=== PATIENT | male | born 1955 | race Caucasian/White ===

== ENCOUNTER 2020-08-26 08:18 | Inpatient (IN) | payer BC, OTHER ==
[~2020-08-26] VITALS: Ht 167.6 cm; Wt 93.5 kg
[~2020-08-26 08:18] MED LIST: ALLO100T PO; ARIP1TAB4 PO; ATIV1TAB10 PO; ATIV1TAB7 PO; BUSP10TA PO; DIAZ5TAB PO; DULC100C PO; OMEP1CAP73 PO; PROZ10CA7 PO; PROZ40CA PO; RAMI1CAP24 PO; SERT-141 PO; SODI650T PO; TRAZ-252 PO; TRAZ1TAB6 PO; VIAG100T PO; XANA0.25 PO; ZYLO300T6 PO
[2020-08-26] MEDS ORDERED: POTA1TAB23 PO (08:34)
[2020-08-26] MEDS ORDERED: ARIP1TAB6 PO (08:34)
[2020-08-26] MEDS ORDERED: SERT-138 PO (08:34)
[2020-08-26] MEDS ORDERED: FURO40TA2 PO (08:34)
[2020-08-26 09:17] LABS: HEMATOCRIT 46.1 % (42.0-52.0); HEMOGLOBIN 15.6 g/dl (13.5-17.5); MEAN CORPUSCULAR HEMOGLOBIN 33.2 pg (27.0-33.0); MEAN CORPUSCULAR HGB CONC 33.8 g/dl (32.0-36.5); MEAN CORPUSCULAR VOLUME 98.1 fl (80.0-96.0); PLATELET COUNT, AUTOMATED 211 10^3/uL (150-450); WHITE BLOOD COUNT 7.3 10^3/uL (4.0-10.0)
[2020-08-26 10:10] LABS: ACETAMINOPHEN LEVEL < 2.0 UG/ML (10.0-30.0); ALBUMIN 4.1 GM/DL (3.2-5.2); ALT/SGPT 39 U/L (12-78); BILIRUBIN,DIRECT 0.1 MG/DL (0.0-0.2); BILIRUBIN,TOTAL 0.5 MG/DL (0.2-1.0); BLOOD UREA NITROGEN 29 MG/DL (7-18); CALCIUM LEVEL 9.5 MG/DL (8.8-10.2); CARBON DIOXIDE LEVEL 32 MEQ/L (21-32); CHLORIDE LEVEL 102 MEQ/L (98-107); ETHYL ALCOHOL (ETHANOL) < 0.003 % (0.000-0.010); GLOMERULAR FILTRATION RATE 43.4 (>49); GLUCOSE, FASTING 127 MG/DL (70-100); POTASSIUM SERUM 3.4 MEQ/L (3.5-5.1); SALICYLATE LEVEL < 1.7 MG/DL (5.0-30.0); SODIUM LEVEL 140 MEQ/L (136-145); TOTAL PROTEIN 8.4 GM/DL (6.4-8.2)
[2020-08-26 12:05] LABS: AMPHETAMINES LEVEL URINE NEGATIVE (NEGATIVE); BARBITURATES URINE NEGATIVE (NEGATIVE); BENZODIAZEPINES URINE POSITIVE (NEGATIVE); CANNABINOIDS URINE POSITIVE (NEGATIVE); COCAINE METABOLITE URINE NEGATIVE (NEGATIVE); METHADONE URINE NEGATIVE (NEGATIVE); OPIATES URINE NEGATIVE (NEGATIVE); PHENCYCLIDINE URINE NEGATIVE (NEGATIVE)
--- NOTE | 2020-08-26 13:14 | REPVR ---
PROCEDURE INFORMATION: Exam: CT Head Without Contrast Exam date and time: 08/26/2020 1:01 PM Age: 65 years old Clinical indication: Altered mental status/memory loss; Confusion or disorientation TECHNIQUE: Imaging protocol: Computed tomography of the head without contrast. Radiation optimization: All CT scans at this facility use at least one of these dose optimization techniques: automated exposure control; mA and/or kV adjustment per patient size (includes targeted exams where dose is matched to clinical indication); or iterative reconstruction. COMPARISON: No relevant prior studies available. FINDINGS: Brain: There is no acute intracranial hemorrhage or mass effect. Mild diffuse volume loss is within the range of normal for patient age. There are small vessel ischemic changes within the periventricular and subcortical white matter, but the normal burgos/white matter delineation is maintained. Cerebral ventricles: No ventriculomegaly. Bones/joints: Unremarkable. No acute fracture. Paranasal sinuses: Visualized sinuses are unremarkable. No fluid levels. Mastoid air cells: Visualized mastoid air cells are well aerated. Soft tissues: Unremarkable. IMPRESSION: No acute hemorrhage or edema. Electronically signed by: Destiny Banegas On 08/26/2020 13:13:32 PM
[2020-08-26] MEDS ORDERED: SERTRALINE 100 MG TAB PO ONE (15:00)
[2020-08-26] MEDS ORDERED: POTASSIUM CHLORIDE 10 MEQ SR TABLET PO ONE (15:00)
[2020-08-26] MEDS ORDERED: diazePAM 5MG TABLET PO ONE (15:00)
[2020-08-26] MEDS ORDERED: TRAZ-186 PO (15:16)
[2020-08-26] MEDS ORDERED: DOCU100C16 PO (15:16)
[2020-08-26] MEDS ORDERED: DIAZ5TAB PO (15:16)
[2020-08-26] MEDS ORDERED: ZYLO300T6 PO (15:16)
[2020-08-26] MEDS ORDERED: ASPI81TA86 PO (15:16)
[2020-08-26] MEDS ORDERED: OLANZapine ORAL DISINTEGRATING TAB 5MG PO PRN (17:15)
[2020-08-26] MEDS ORDERED: MAALOX 30 ML SUSP *UDC PO PRN (17:15)
[2020-08-26] MEDS ORDERED: ACETAMINOPHEN TAB 650MG DOSE (2X325MG) PO PRN (17:15)
[2020-08-26 19:06] VITALS: BP 132/83
[2020-08-26] MEDS: diazePAM 5MG TABLET PO SCH (21:14)
[2020-08-26] MEDS: POTASSIUM CHLORIDE 10 MEQ SR TABLET PO SCH (21:14)
[2020-08-27 06:20] VITALS: BP 139/91
[2020-08-27] MEDS: allopurinoL 300 MG TAB PO SCH (09:00)
[2020-08-27] MEDS: diazePAM 5MG TABLET PO SCH ×2 (09:00→20:16)
[2020-08-27] MEDS: FUROSEMIDE 40 MG TAB PO SCH (09:01)
[2020-08-27] MEDS: ASPIRIN 81 MG ENTERIC TAB PO SCH (09:02)
[2020-08-27] MEDS: POTASSIUM CHLORIDE 10 MEQ SR TABLET PO SCH ×2 (09:02→20:17)
[2020-08-27] MEDS: SERTRALINE 100 MG TAB PO SCH (09:02)
--- NOTE | 2020-08-27 10:51 | MHHPEPDOC ---
General Date Of Admission: Aug 26, 2020 Legal Status: 9.39 Chief Complaint "I am here because I had a foolish idea in my head, I didn't want to live the way I felt, I didn't want to live." History of Present Illness HISTORY OF THE PRESENT ILLNESS: Patient is a 65 -year-old , Retired, Domiciled, , male, who was brought in by his family for suicidal ideation. Family was noticing his depression. He denies anxiety. Depression had started one month ago. "I had bouts of minor depression but it went away. This time around it came and didn't go away he states." Patient has bilateral essential tremors in both hands and arms. Presents with depressed mood but denies anxiety, reporting poor sleep, poor appetite, having feelings of wanting to be but no having self-harm thoughts. He state that he has an neurological appointment on 08/29/20 for his essential tremors. Psychiatric Review of Systems Depression (2 or more weeks): depressed mood, anhedonia, insomnia/hypersomnia (having poor sleep, complains of peer who is yelling at night states he can't sleep while in the hospital. ), feelings of excess/guilt, decreased energy, difficulty concentrating, appetite changes, psychomotor changes (has tremors), suicidal thoughts Dunia (4 or more days of): denies Psychosis: denies PTSD: denies Anxiety: denies Past Psychiatric History Previous Psychiatric Diagnosis: Depression Previous Psychiatric Admissions: two admissions in 2016 Suicide Attempts: no past gestures or attempts, has had ideations in the past "I don't believe in that, the bible says you will never make it to heaven" Psychiatric Follow-up: [facility] Psychiatric medications: Past Medical History Medical Problems Tremors (states tremors started 6 weeks ago, feels he has Parkinson's) Years ago had infection in his blood and was hospitalized Kidney Disease Surgical: None Allergies: PCN Head Injury: No Seizures: No Hospitalizations: Yes Surgeries: No Family Medical/Psychiatric HX Medical Problems "My Mother has problems with her nerves" 2016 Father , at age 49 and feels that this may have caused mother's depression 1 of 4 children, he is the youngest. All of his siblings are alive. Close relationship with his siblings. Hypertension CKD3 Atrophic left kidney Hyperuricemia History of kidney stone Anxiety/depression Insomnia Chronic back pain/hip pain History of left groin pain evaluated by urology and this was felt to be tendinitis. Subsequently he received chiropractor treatments and this improved. When he gets muscle tightness associated with stress he has noticed pain in the right groin as well. Poor dentition Psychiatric Disorders: Yes Addiction: No Suicide Attemps/Completions: No Addiction History denies Social History Childhood: Born in [place] to both parents, 1 of 4 children, he is the youngest. 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 could not have children. Mental Status Examination General Appearance: well groomed Build: overweight Demeanor: average Eye Contact: average Activity: slowed Behavior: cooperative Speech: clear Mood: depressed Mood "I am feeling a little better" Affect: flat Thought Process: logical/linear Thought Content (Delusions): none reported, denies SI, HI, AVH Thought Content (Other): none reported Thought Content (Aggressive): none reported Perception (Hallucinations): none reported Perception (Other): none reported Cognition (Impairment of): none reported Cognition(Intelligence Est.): average Oriented: Awake, Alert, Oriented times three Insight: good Judgment: Good Psychosis: Denies Diagnoses Major Depressive Disorder, Recurrent, Mild A-FIB/CHADSVASC A-FIB History Current/History of A-Fib/PAF?: No Current PO Anticoag Therapy: No Age/Risk Factor Scoring CHADSVASC: CHADSVASC Response (Comments) Value Age Risk Factor Age < 65 years old 0 Gender Risk Factor Male 0 Hx of CHF No 0 Hx of HTN No 0 Hx of Stroke/TIA/or VTE No 0 Hx of Diabetes No 0 Hx of Vascular Disease No 0 Total 0 Treatment Treatment ordered: NONE Assessment Patient is reporting depression with suicidal ideation but no planning or intent. He stated that he has moments when he does want to live, but that he does not have a plan or have intent. He cites that his hinduism stops him, stating "The bible says that if you kill yourself, you will never get to heaven." Patient reports that mild tremors started approximately 1 year ago and were mild and note noticeable. About 6-8 months ago his sisters noted his tremors. Likely his tremors are the related to his increase in depression. It may be necessary for him to keep the appointment. with neurologist Patient is reporting a reduction in depression in my interview with him but complains that he is not able to sleep due to yelling of another peer on the unit. At this time, he is agreeable to staying the weekend and being observed. He will continue all of his home medications. Patient is on Zoloft 200 mg and Abilify 5 mg, I see no need to make any changes at this time. Initial Treatment Plan 1. Patient was admitted on a [9.39] status. 2. Complete history was obtained. 3. With patients permission, family will be contacted and database will be expanded. 4. Patients medication regimen will be reviewed and changed accordingly. 5. Patient will be provided with protected environment. 6. Patient will be treated with individual, group, and milieu therapies. 7. Patient will receive supportive psych-education. 8. Discharge planning will commence immediately. 9. Outpatient follow-up treatment will be strongly recommended. 10. The initial treatment plan will focus initially on: * Depression. * Risk for suicide. ESTIMATED LENGTH OF STAY: 3-5 DAYS. TIME SPENT COUNSELING AND COORDINATING INITIAL CARE: 45 minutes. Vital Signs Vital Signs Date Time Temp Pulse Resp B/P (MAP) Pulse Ox O2 Delivery O2 Flow Rate FiO2 08/27/20 06:20 97.5 104 20 139/91 (107) Room Air 08/26/20 18:11 96 Laboratory Data 24H Labs Laboratory Tests 2 08/26/20 11:20: Urine Opiates Screen NEGATIVE, Urine Methadone Screen NEGATIVE, Urine Barbiturates Screen NEGATIVE, Urine Phencyclidine Screen NEGATIVE, Urine Amphetamines Screen NEGATIVE, Urine Benzodiazepines Screen POSITIVEH, Urine Cocaine Metabolite Screen NEGATIVE, Urine Cannabinoids Screen POSITIVEH Medications Scheduled Allopurinol (Zyloprim) 300 Mg Tablet, 300 MG PO DAILY, (Reported) Aripiprazole (Aripiprazole) 5 Mg Tablet, 5 MG PO DAILY, (Reported) Aspirin (Aspir 81) 81 Mg Tablet.dr, 81 MG PO DAILY, (Reported) Diazepam (Diazepam) 5 Mg Tablet, 5 MG PO BID, (Reported) Furosemide (Furosemide) 40 Mg Tablet, 40 MG PO DAILY, (Reported) Potassium Chloride (Potassium Chloride) 10 Meq Tablet.er, 10 MEQ PO BID, (Reported) Sertraline HCl (Sertraline HCl) 100 Mg Tablet, 200 MG PO DAILY, (Reported) Sodium Bicarbonate (Sodium Bicarbonate) 650 Mg Tab, 650 MG PO BID, (Reported) Trazodone HCl (Trazodone HCl) 50 Mg Tablet, 50 MG PO QHS, (Reported) Scheduled PRN Docusate Sodium (Docusate Sodium) 100 Mg Capsule, 100 MG PO DAILY PRN for CONSTIPATION, (Reported) Allergies Coded Allergies: Penicillins (Verified Allergy, Intermediate, RASH, 08/26/20) DILMA GRIFFITH NP Aug 27, 2020 10:51
--- NOTE | 2020-08-27 13:53 | HPEPDOC ---
General Date of Admission Aug 26, 2020 at 17:15 Date of Service: Aug 27, 2020 Chief Complaint The patient is a 65-year-old male admitted with a reason for visit of Unspecified Depressive Disorder. Source: Patient History of Present Illness 65 year old male with PMH of CKD stage 3, hypertension, hyperuricemia, kidney stone , depression was admitted in [facility] for unspecified depression. Patient is being medically examined today. Patient does not offer any complaints today Excepts that he has noticed tremors in his hands and sometimes in his feet for the past several months. He reports that he has an appointment with Dr George next week. He says that he has not been eating or drinking well since he has been here. He denies any problem walking but nurses have noticed that he is very stiff and has difficulty getting in and out of bed. I noted him to be walking with a slow stiff gait. Home Medications Scheduled Allopurinol (Zyloprim) 300 Mg Tablet, 300 MG PO DAILY, (Reported) Aripiprazole (Aripiprazole) 5 Mg Tablet, 5 MG PO DAILY, (Reported) Aspirin (Aspir 81) 81 Mg Tablet.dr, 81 MG PO DAILY, (Reported) Diazepam (Diazepam) 5 Mg Tablet, 5 MG PO BID, (Reported) Furosemide (Furosemide) 40 Mg Tablet, 40 MG PO DAILY, (Reported) Potassium Chloride (Potassium Chloride) 10 Meq Tablet.er, 10 MEQ PO BID, (Reported) Sertraline HCl (Sertraline HCl) 100 Mg Tablet, 200 MG PO DAILY, (Reported) Sodium Bicarbonate (Sodium Bicarbonate) 650 Mg Tab, 650 MG PO BID, (Reported) Trazodone HCl (Trazodone HCl) 50 Mg Tablet, 50 MG PO QHS, (Reported) Scheduled PRN Docusate Sodium (Docusate Sodium) 100 Mg Capsule, 100 MG PO DAILY PRN for CONSTIPATION, (Reported) Allergies Coded Allergies: Penicillins (Verified Allergy, Intermediate, RASH, 08/26/20) Past Medical History Medical History Hypertension CKD3 Atrophic left kidney Hyperuricemia History of kidney stone Anxiety/depression Insomnia Chronic back pain/hip pain History of left groin pain evaluated by urology and this was felt to be tendinitis. Subsequently he received chiropractor treatments and this improved. When he gets muscle tightness associated with stress he has noticed pain in the right groin as well. Poor dentition ED Surgical History none Family History Mother: age 87 secondary to dementia Father: age 49 secondary to [place] Siblings: One brother has bad gout, 2 sisters Alive, well Children: None Social History * Smoker: Denies Alcohol: Denies Drugs: denies A-FIB/CHADSVASC A-FIB History Current/History of A-Fib/PAF?: No Review of Systems Constitutional: Denies: Chills, Fever, Night Sweats Eyes: Denies: Pain, Vision change ENT: Denies: Head Aches, Ear Pain, Dysphagia Skin: Denies: Rash, Lesions, Breakdown Pulmonary: Denies: Dyspnea, Cough Cardiovascular: Denies: Chest Pain, Palpitations, Orthopnea, Paroxysmal Noc. Dyspnea, Lt Headedness Gastrointestinal: Denies: Nausea, Vomiting, Abdominal Pain, Diarrhea Genitourinary: Denies: Dysuria, Frequency, Incontinence, Retention Musculoskeletal: Denies: Neck Pain, Back Pain, Joint Pain, Muscle Pain, Spasms Physical Examination General Exam: Positive: Alert, Cooperative, No Acute Distress Eye Exam: Positive: PERRLA, Conjunctiva & lids normal, EOMI; Negative: Sclera icteric ENT Exam: Positive: Atraumatic, Mucous membr. moist/pink, Pharynx Normal Neck Exam: Positive: Supple; Negative: JVD, thyromegaly Chest Exam: Positive: Clear to auscultation, Normal air movement Heart Exam: Positive: Rate Normal, Regular Rhythm, Normal S1, Normal S2; Negative: Murmurs, Rubs Abdomen Exam: Positive: Normal bowel sounds, Soft; Negative: Tenderness, Hepatospenomegaly Extremity Exam: Positive: Normal pulses; Negative: Clubbing, Cyanosis, Edema Skin Exam: Positive: Nl turgor and temperature; Negative: Breakdown, Lesion Neuro Exam: Positive: Other (static tremors in both hands, cog wheel rigidily at the wrist and elbows) Psych Exam: Positive: Memory Intact, Oriented x 3 Vital Signs Vital Signs Date Time Temp Pulse Resp B/P (MAP) Pulse Ox O2 Delivery O2 Flow Rate FiO2 08/27/20 06:20 97.5 104 20 139/91 (107) Room Air 08/26/20 18:11 96 Assessment/Plan 65 year old male with PMH of CKD stage 3, hypertension, hyperuricemia, kidney stone , depression was admitted in [facility] for unspecified depression. Patient is being medically examined today. Probable parkinsonism has appointment with Dr George. CKD stage 3 creatinine stable at baseline continue sodi bicarb, lasix, potassium Hypertension continue lasix Hyperuricemia/gout cont allopurinol Depression as per psychiatry Plan / VTE VTE Prophylaxis Ordered?: No (freely ambulatory) KINSEY BECK MD Aug 27, 2020 12:49
[2020-08-27 17:58] VITALS: BP 139/82
[2020-08-28 06:44] VITALS: BP 137/83
[2020-08-28] MEDS ORDERED: FLUBLOK(EGG FREE)(QUAD)INFLUENZA VACC 0.5ML SYRINGE 18YRS & OLDER IM ONE (09:00)
[2020-08-28] MEDS: ASPIRIN 81 MG ENTERIC TAB PO SCH (09:41)
[2020-08-28] MEDS: diazePAM 5MG TABLET PO SCH ×2 (09:42→20:05)
[2020-08-28] MEDS: SERTRALINE 100 MG TAB PO SCH (09:42)
[2020-08-28] MEDS: FUROSEMIDE 40 MG TAB PO SCH (09:42)
[2020-08-28] MEDS: POTASSIUM CHLORIDE 10 MEQ SR TABLET PO SCH ×2 (09:42→20:05)
[2020-08-28] MEDS: allopurinoL 300 MG TAB PO SCH (09:42)
[2020-08-28 18:00] VITALS: BP 148/84
[2020-08-28] MEDS: traZODone 50 MG TAB PO PRN (20:05)
[2020-08-29 06:51] VITALS: BP 144/80
[2020-08-29] MEDS: FUROSEMIDE 40 MG TAB PO SCH (08:44)
[2020-08-29] MEDS: diazePAM 5MG TABLET PO SCH ×2 (08:44→20:13)
[2020-08-29] MEDS: allopurinoL 300 MG TAB PO SCH (08:44)
[2020-08-29] MEDS: SERTRALINE 100 MG TAB PO SCH (08:44)
[2020-08-29] MEDS: ASPIRIN 81 MG ENTERIC TAB PO SCH (08:44)
[2020-08-29] MEDS: POTASSIUM CHLORIDE 10 MEQ SR TABLET PO SCH ×2 (08:45→20:13)
--- NOTE | 2020-08-29 16:24 | MHIPN ---
DATE: 08/28/2020 The patient today states "I've been better." He admits that he is feeling very depressed. He says that his sleep was fair, because he woke up in the middle of the night and did not remember where he was. MENTAL STATUS EXAMINATION: He is alert and oriented times three. Eye contact is poor. Patient is noted to have a significant fine tremor of the upper extremities. There is no formal thought disorder. Mood is depressed. Affect appropriate to mood. He is not psychotic, suicidal, homicidal. Concentration is fair. Memory intact. Insight and judgment are fair. DIAGNOSIS: Major depressive disorder. TREATMENT PLAN: We will continue to monitor the patient for continued elevation and stabilization of his mood and continued resolution of suicidal thoughts, and we will titrate medications as indicated. MAGDY
[2020-08-29 17:59] VITALS: BP 130/74
[2020-08-30 06:36] VITALS: BP 137/86
--- NOTE | 2020-08-30 09:43 | MHIPNPDOC ---
[facility] Progress Note Progress Note DATE OF SERVICE: 08/30/20 Subjective HPI: Patient presents today for a follow-up. Patient has a quite masked face with some tremors, obvious signs of Parkinsons disease. He is somewhat feeling better and his suicidal thoughts have resolved. He did have an episode of confusion this morning. MEDICAL HISTORY: Patient has Parkinsons disease. Objective Affect: Masked facies. Tremors prominent on the left side. Flat. Speech: Spontaneous and Fluid. Monotone. Small in comparison. Cognition: Alert and oriented today and month but not time of day. Thought Form: Midly loosened. Linear and goal directed. Judgement: Fair. Insight: Poor. 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 Consult with neurology whether patient suffering from Parkinsons treatment could help with his depression which is significantly untreated. Vital Signs Vital Signs Date Time Temp Pulse Resp B/P (MAP) Pulse Ox O2 Delivery O2 Flow Rate FiO2 08/30/20 06:36 98.3 98 18 137/86 (103) 95 Room Air Current Medications Current Medications Medications (Trade) Dose Ordered Sig/Karina Route PRN Reason Start Time Stop Time Status Last Admin Dose Admin Acetaminophen (Tylenol Tab) 650 mg Q6HP PRN PO HEADACHE or DISCOMFORT 08/26/20 17:15 Al Hydrox/Mg Hydrox/Simethicone (Mylanta) 30 ml Q4HP PRN PO HEARTBURN/INDIGESTION 08/26/20 17:15 Allopurinol (Zyloprim) 300 mg DAILY PO 08/27/20 09:00 08/29/20 08:44 Aripiprazole (AbiLIFY) 5 mg DAILY PO 08/27/20 09:00 08/29/20 08:44 Aspirin (Ecotrin) 81 mg DAILY PO 08/27/20 09:00 08/29/20 08:44 Diazepam (Valium) 5 mg BID PO 08/26/20 21:00 08/29/20 20:13 Docusate Sodium (Colace) 100 mg DAILY PRN PO CONSTIPATION 08/26/20 17:15 Furosemide (Lasix) 40 mg DAILY PO 08/27/20 09:00 08/29/20 08:44 Home Med (Med Rec Complete!) ASDIRECTED XX 08/26/20 15:30 08/26/20 15:25 DC Magnesium Hydroxide (Milk Of Magnesia) 30 ml DAILYPRN PRN PO CONSTIPATION 08/26/20 17:15 Olanzapine (ZyPREXA ZYDIS) 5 mg Q4HP PRN PO AGITATION 08/26/20 17:15 Potassium Chloride (Micro-K Extencaps) 10 meq BID PO 08/26/20 21:00 08/29/20 20:13 Sertraline HCl (Zoloft) 200 mg DAILY PO 08/27/20 09:00 08/29/20 08:44 Trazodone HCl (Desyrel) 50 mg QHSP PRN PO INSOMNIA 08/26/20 17:15 08/28/20 20:05 Allergies Coded Allergies: Penicillins (Verified Allergy, Intermediate, RASH, 08/26/20) OBED MARK DO Aug 30, 2020 09:43
[2020-08-30] MEDS: diazePAM 5MG TABLET PO SCH ×2 (09:48→19:59)
[2020-08-30] MEDS: SERTRALINE 100 MG TAB PO SCH (09:48)
[2020-08-30] MEDS: ASPIRIN 81 MG ENTERIC TAB PO SCH (09:48)
[2020-08-30] MEDS: FUROSEMIDE 40 MG TAB PO SCH (09:48)
[2020-08-30] MEDS: POTASSIUM CHLORIDE 10 MEQ SR TABLET PO SCH ×2 (09:48→20:01)
[2020-08-30] MEDS: allopurinoL 300 MG TAB PO SCH (09:48)
[2020-08-30 16:03] VITALS: BP 135/82
[2020-08-30] MEDS: traZODone 50 MG TAB PO PRN (19:59)
[2020-08-31 06:27] VITALS: BP 146/87
[2020-08-31] MEDS: diazePAM 5MG TABLET PO SCH ×2 (08:34→20:07)
[2020-08-31] MEDS: allopurinoL 300 MG TAB PO SCH (08:34)
[2020-08-31] MEDS: POTASSIUM CHLORIDE 10 MEQ SR TABLET PO SCH ×2 (08:34→20:07)
[2020-08-31] MEDS: SERTRALINE 100 MG TAB PO SCH (08:34)
[2020-08-31] MEDS: FUROSEMIDE 40 MG TAB PO SCH (08:34)
[2020-08-31] MEDS: ASPIRIN 81 MG ENTERIC TAB PO SCH (08:34)
--- NOTE | 2020-08-31 09:57 | MHIPN ---
DATE: 08/29/2020 Patient states Im not too bad. He says he slept better last night and that he is feeling less depressed. MENTAL STATUS EXAMINATION: He is alert and oriented times three. He is pleasant and cooperative, verbally spontaneous. There is no formal thought disorder noted. Mood is depressed. Affect full range and appropriate. He is not psychotic, suicidal, or homicidal. Concentration is fair. Insight and judgment is fair. DIAGNOSIS: Major depressive disorder. TREATMENT PLAN: We will continue to monitor the patient for continued elevation and stabilization of his mood and for resolution of suicidal ideation. MAGDY
--- NOTE | 2020-08-31 10:43 | MHIPNPDOC ---
[facility] Progress Note Progress Note DATE OF SERVICE: 08/31/20 Subjective HPI: Mykel presents today for concerns regarding his symptoms with Parkinsons disease. Patient still has significant Parkinsons symptoms and reports that he is now feeling more depressedHe reports no suicidal ideation but reports feeling less energized, hopeless and feels like there is a black cloud closed around him. Patient inquires he has been isolative to his room, walking around sometimes but has significant difficulty during the masked facies and tremors Objective Appearance: Fair. Behavior: Engaged. Pleasant. Cooperative with good eye contact. Affect: Flat. Mood: Euthymic. Generally good. Appropriately reactive. Speech: Spontaneous and Fluid. Normal rate. Normal volume. Motor: No gross motor abnormalities. Cognition: Alert, Attentive, and Oriented to person, place, time. Memory: No gross abnormalities of short or continuous churn buttermaker memory noted during interview. No formal testing. Thought Form: Linear and goal directed. Thought Content: No evidence of suicidal ideation. No evidence of aggressive or homicidal ideation. No evidence of delusions. No thoughts of self harm. Perception: No perceptual abnormalities noted. Judgement: Fair. Insight: Fair. Assessment F33.8 Other recurrent depressive disorders G25.9 Extrapyramidal and movement disorder, unspecified Plan Discontinue Abilify at the request of Neurology as they request that hes been on the Abilify, they cant make a formal diagnosis. Continue Zoloft [address] George on to consult on whether theres a treatment that would be useful. Vital Signs Vital Signs Date Time Temp Pulse Resp B/P (MAP) Pulse Ox O2 Delivery O2 Flow Rate FiO2 08/31/20 06:27 97.6 83 18 146/87 (106) 08/30/20 06:36 95 Room Air Current Medications Current Medications Medications (Trade) Dose Ordered Sig/Karina Route PRN Reason Start Time Stop Time Status Last Admin Dose Admin Acetaminophen (Tylenol Tab) 650 mg Q6HP PRN PO HEADACHE or DISCOMFORT 08/26/20 17:15 Al Hydrox/Mg Hydrox/Simethicone (Mylanta) 30 ml Q4HP PRN PO HEARTBURN/INDIGESTION 08/26/20 17:15 Allopurinol (Zyloprim) 300 mg DAILY PO 08/27/20 09:00 08/31/20 08:34 Aripiprazole (AbiLIFY) 5 mg DAILY PO 08/27/20 09:00 08/31/20 08:34 Aspirin (Ecotrin) 81 mg DAILY PO 08/27/20 09:00 08/31/20 08:34 Diazepam (Valium) 5 mg BID PO 08/26/20 21:00 08/31/20 08:34 Docusate Sodium (Colace) 100 mg DAILY PRN PO CONSTIPATION 08/26/20 17:15 Furosemide (Lasix) 40 mg DAILY PO 08/27/20 09:00 08/31/20 08:34 Home Med (Med Rec Complete!) ASDIRECTED XX 08/26/20 15:30 08/26/20 15:25 DC Magnesium Hydroxide (Milk Of Magnesia) 30 ml DAILYPRN PRN PO CONSTIPATION 08/26/20 17:15 Olanzapine (ZyPREXA ZYDIS) 5 mg Q4HP PRN PO AGITATION 08/26/20 17:15 Potassium Chloride (Micro-K Extencaps) 10 meq BID PO 08/26/20 21:00 08/31/20 08:34 Sertraline HCl (Zoloft) 200 mg DAILY PO 08/27/20 09:00 08/31/20 08:34 Trazodone HCl (Desyrel) 50 mg QHSP PRN PO INSOMNIA 08/26/20 17:15 08/30/20 19:59 Allergies Coded Allergies: Penicillins (Verified Allergy, Intermediate, RASH, 08/26/20) OBED MARK DO Aug 31, 2020 10:43
[2020-08-31 16:38] VITALS: BP 132/72
[2020-08-31] MEDS: DOCUSATE SODIUM 100MG CAPSULE PO PRN (20:07)
[2020-09-01 06:30] VITALS: BP 148/88
[2020-09-01] MEDS: ASPIRIN 81 MG ENTERIC TAB PO SCH (09:16)
[2020-09-01] MEDS: diazePAM 5MG TABLET PO SCH ×2 (09:16→20:03)
[2020-09-01] MEDS: SERTRALINE 100 MG TAB PO SCH (09:17)
[2020-09-01] MEDS: FUROSEMIDE 40 MG TAB PO SCH (09:17)
[2020-09-01] MEDS: allopurinoL 300 MG TAB PO SCH (09:17)
[2020-09-01] MEDS: POTASSIUM CHLORIDE 10 MEQ SR TABLET PO SCH ×2 (09:17→20:03)
--- NOTE | 2020-09-01 10:56 | MHIPNPDOC ---
[facility] Progress Note Progress Note DATE OF SERVICE: 09/01/20 Subjective HPI: The patient has met with briefly. He continues to have confusion episodes where he doesn't remember the day prior. He reports that he's still feeling depressed. Denies suicidal Thoughts, but it appears still heavily impaired from what appears to be Parkinson's. He has been isolative sometimes. Objective Appearance: Fair. Affect: Flat with masked face. See tremors present. Cognition: Mildly impaired. Thought Form: Generally linear. Associations are not able to be judged. Judgement: Poor. Insight: Poor. Assessment F32.89 Other specified depressive episodes G25.89 Other specified extrapyramidal and movement disorders Plan Continue Sertraline 200 milligrams daily. Will call Neurology tomorrow as planned for consultation for treatment as he will need this as it is quite imperative to his function at home. Vital Signs Vital Signs Date Time Temp Pulse Resp B/P (MAP) Pulse Ox O2 Delivery O2 Flow Rate FiO2 09/01/20 06:30 97.9 99 18 148/88 (108) 08/30/20 06:36 95 Room Air Current Medications Current Medications Medications (Trade) Dose Ordered Sig/Karina Route PRN Reason Start Time Stop Time Status Last Admin Dose Admin Acetaminophen (Tylenol Tab) 650 mg Q6HP PRN PO HEADACHE or DISCOMFORT 08/26/20 17:15 Al Hydrox/Mg Hydrox/Simethicone (Mylanta) 30 ml Q4HP PRN PO HEARTBURN/INDIGESTION 08/26/20 17:15 Allopurinol (Zyloprim) 300 mg DAILY PO 08/27/20 09:00 09/01/20 09:17 Aripiprazole (AbiLIFY) 5 mg DAILY PO 08/27/20 09:00 08/31/20 14:07 DC 08/31/20 08:34 Aspirin (Ecotrin) 81 mg DAILY PO 08/27/20 09:00 09/01/20 09:16 Diazepam (Valium) 5 mg BID PO 08/26/20 21:00 09/01/20 09:16 Docusate Sodium (Colace) 100 mg DAILY PRN PO CONSTIPATION 08/26/20 17:15 08/31/20 20:07 Furosemide (Lasix) 40 mg DAILY PO 08/27/20 09:00 09/01/20 09:17 Home Med (Med Rec Complete!) ASDIRECTED XX 08/26/20 15:30 08/26/20 15:25 DC Magnesium Hydroxide (Milk Of Magnesia) 30 ml DAILYPRN PRN PO CONSTIPATION 08/26/20 17:15 Olanzapine (ZyPREXA ZYDIS) 5 mg Q4HP PRN PO AGITATION 08/26/20 17:15 Potassium Chloride (Micro-K Extencaps) 10 meq BID PO 08/26/20 21:00 09/01/20 09:17 Sertraline HCl (Zoloft) 200 mg DAILY PO 08/27/20 09:00 09/01/20 09:17 Trazodone HCl (Desyrel) 50 mg QHSP PRN PO INSOMNIA 08/26/20 17:15 08/30/20 19:59 Allergies Coded Allergies: Penicillins (Verified Allergy, Intermediate, RASH, 08/26/20) OBED MARK DO Sep 01, 2020 10:55
[2020-09-01 16:40] VITALS: BP 140/74
[2020-09-01] MEDS: DOCUSATE SODIUM 100MG CAPSULE PO PRN (20:03)
[2020-09-02 06:29] VITALS: BP 146/90
--- NOTE | 2020-09-02 09:40 | MHIPNPDOC ---
[facility] Progress Note Progress Note DATE OF SERVICE: 09/02/20 Subjective HPI: Mykel was met with briefly today and appeared to be confused as he didnt know why he was here. Discussed about him seeing the neurologist, which hes open to, but the interest is very little. He has a shuffling gait and tremors. Objective Behavior: Engaged very little. Affect: He appears to have such flat affect with masked facies, which is diffiuclt to discern any resonable emotion. Cognition: His associations appear intact, but his cognition seem to wax away with some confusion at times. Thought Form: Linear sometimes. Judgement: Poor to fair. Insight: Poor to fair. 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 George, who will come to see the patient later this evening, to consult on whether a trial of cinnamon would be appropriate. Vital Signs Vital Signs Date Time Temp Pulse Resp B/P (MAP) Pulse Ox O2 Delivery O2 Flow Rate FiO2 09/02/20 06:29 98.2 88 16 146/90 (108) 08/30/20 06:36 95 Room Air Current Medications Current Medications Medications (Trade) Dose Ordered Sig/Karina Route PRN Reason Start Time Stop Time Status Last Admin Dose Admin Acetaminophen (Tylenol Tab) 650 mg Q6HP PRN PO HEADACHE or DISCOMFORT 08/26/20 17:15 09/01/20 20:04 Al Hydrox/Mg Hydrox/Simethicone (Mylanta) 30 ml Q4HP PRN PO HEARTBURN/INDIGESTION 08/26/20 17:15 Allopurinol (Zyloprim) 300 mg DAILY PO 08/27/20 09:00 09/01/20 09:17 Aripiprazole (AbiLIFY) 5 mg DAILY PO 08/27/20 09:00 08/31/20 14:07 DC 08/31/20 08:34 Aspirin (Ecotrin) 81 mg DAILY PO 08/27/20 09:00 09/01/20 09:16 Diazepam (Valium) 5 mg BID PO 08/26/20 21:00 09/01/20 20:03 Docusate Sodium (Colace) 100 mg DAILY PRN PO CONSTIPATION 08/26/20 17:15 09/01/20 20:03 Furosemide (Lasix) 40 mg DAILY PO 08/27/20 09:00 09/01/20 09:17 Home Med (Med Rec Complete!) ASDIRECTED XX 08/26/20 15:30 08/26/20 15:25 DC Magnesium Hydroxide (Milk Of Magnesia) 30 ml DAILYPRN PRN PO CONSTIPATION 08/26/20 17:15 Olanzapine (ZyPREXA ZYDIS) 5 mg Q4HP PRN PO AGITATION 08/26/20 17:15 Potassium Chloride (Micro-K Extencaps) 10 meq BID PO 08/26/20 21:00 09/01/20 20:03 Sertraline HCl (Zoloft) 200 mg DAILY PO 08/27/20 09:00 09/01/20 09:17 Trazodone HCl (Desyrel) 50 mg QHSP PRN PO INSOMNIA 08/26/20 17:15 08/30/20 19:59 Allergies Coded Allergies: Penicillins (Verified Allergy, Intermediate, RASH, 08/26/20) OBED MARK DO Sep 02, 2020 09:40
[2020-09-02] MEDS: POTASSIUM CHLORIDE 10 MEQ SR TABLET PO SCH ×2 (09:55→20:13)
[2020-09-02] MEDS: allopurinoL 300 MG TAB PO SCH (09:55)
[2020-09-02] MEDS: diazePAM 5MG TABLET PO SCH ×2 (09:55→20:13)
[2020-09-02] MEDS: SERTRALINE 100 MG TAB PO SCH (09:55)
[2020-09-02] MEDS: FUROSEMIDE 40 MG TAB PO SCH (09:55)
[2020-09-02] MEDS: ASPIRIN 81 MG ENTERIC TAB PO SCH (09:55)
[2020-09-02] MEDS: MOM 30ML SUSPENSION UDC PO PRN (09:57)
[2020-09-02] MEDS: SINEMET 25-100 MG TAB PO SCH (20:13)
[2020-09-03 06:40] VITALS: BP 166/90
[2020-09-03 07:44] VITALS: BP 166/90
--- NOTE | 2020-09-03 07:58 | REPVR ---
PROCEDURE INFORMATION: Exam: CT Head Without Contrast Exam date and time: 09/03/2020 7:18 AM Age: 65 years old Clinical indication: Pain; Headache; Additional info: Disoriented TECHNIQUE: Imaging protocol: Computed tomography of the head without contrast. Radiation optimization: All CT scans at this facility use at least one of these dose optimization techniques: automated exposure control; mA and/or kV adjustment per patient size (includes targeted exams where dose is matched to clinical indication); or iterative reconstruction. COMPARISON: CT Head without contrast 08/26/2020 12:57 PM FINDINGS: Brain: There is no acute intracranial hemorrhage or mass effect. Mild diffuse volume loss is within the range of normal for patient age. There are small vessel ischemic changes within the periventricular and subcortical white matter, but the normal burgos/white matter delineation is maintained. Cerebral ventricles: No ventriculomegaly. Bones/joints: Unremarkable. No acute fracture. Paranasal sinuses: Visualized sinuses are unremarkable. No fluid levels. Mastoid air cells: Visualized mastoid air cells are well aerated. Soft tissues: Unremarkable. IMPRESSION: No acute hemorrhage or edema. Electronically signed by: Destiny Banegas On 09/03/2020 07:58:19 AM
[2020-09-03 08:45] VITALS: BP 128/66
[2020-09-03 08:48] LABS: BASO % 0.5 % (0.0-1.0); EOS # 0.1 10^3/uL (0.0-0.5); EOS % 1.1 % (0.0-3.0); HEMOGLOBIN 14.7 g/dl (13.5-17.5); LYMPH # 1.7 10^3/uL (1.5-5.0); LYMPH % 21.6 % (24.0-44.0); MEAN CORPUSCULAR HEMOGLOBIN 33.5 pg (27.0-33.0); MEAN CORPUSCULAR HGB CONC 34.2 g/dl (32.0-36.5); MEAN CORPUSCULAR VOLUME 97.9 fl (80.0-96.0); MONO # 0.8 10^3/uL (0.0-0.8); MONO % 10.2 % (0.0-5.0); NEUTROPHILS # 5.3 10^3/uL (1.5-8.5); NEUTROPHILS % 66.2 % (36.0-66.0); PLATELET COUNT, AUTOMATED 238 10^3/uL (150-450); RED BLOOD COUNT 4.39 10^6/uL (4.30-6.10)
[2020-09-03] MEDS ORDERED: CAPTOpril 6.25 MG PER 1/2 TABLET PO ONE (09:00)
[2020-09-03 09:09] LABS: BLOOD UREA NITROGEN 29 MG/DL (7-18); CALCIUM LEVEL 9.1 MG/DL (8.8-10.2); CARBON DIOXIDE LEVEL 30 MEQ/L (21-32); CHLORIDE LEVEL 100 MEQ/L (98-107); CREATININE FOR GFR 1.51 MG/DL (0.70-1.30); GLOMERULAR FILTRATION RATE 49.8 (>49); GLUCOSE, FASTING 109 MG/DL (70-100); POTASSIUM SERUM 4.1 MEQ/L (3.5-5.1); SODIUM LEVEL 138 MEQ/L (136-145)
[2020-09-03] MEDS: FUROSEMIDE 40 MG TAB PO SCH (09:35)
[2020-09-03] MEDS: ASPIRIN 81 MG ENTERIC TAB PO SCH (09:35)
[2020-09-03] MEDS: POTASSIUM CHLORIDE 10 MEQ SR TABLET PO SCH ×2 (09:35→21:25)
[2020-09-03] MEDS: SINEMET 25-100 MG TAB PO SCH ×3 (09:35→21:25)
[2020-09-03] MEDS: diazePAM 5MG TABLET PO SCH ×2 (09:35→21:25)
[2020-09-03] MEDS: allopurinoL 300 MG TAB PO SCH (09:35)
--- NOTE | 2020-09-03 10:29 | MHIPNPDOC ---
[facility] Progress Note Progress Note DATE OF SERVICE: 09/03/20 Subjective HPI: Kain presents today for psych issues. The patient's met with today. He had a diaphoretic reaction when he was placed on sentiment the previous evening. Neurology and hospitalists are currently working up the neurological problems. The patients still heavily impaired by what appears to be Parkinson's disorder. He is able to understand some parts but appears confused at other times. He reports he's upset about having to be here. However, he still is very impaired. Objective Affect: Flat. Severe tremor. Mood: Doesnt engage much in conversation. Speech: Paucity of speech. Judgement: Poor-fair. Insight: Poor-fair. Assessment F33.8 Other recurrent depressive disorders G20 Parkinson's disease Plan Have discontinued the Sertraline. Plan to continue current sentiment treatment. Discontinued Sertraline as concerned for serotonin syndrome. Hospitalist and neurology or doing work up right now for confusion episodes. Discussed with as she had requested an update that ascertaining these will be critical to controlling his depression. Abilify at this time is not indicated due to Parkinson's. Will continue to monitor. Vital Signs Vital Signs Date Time Temp Pulse Resp B/P (MAP) Pulse Ox O2 Delivery O2 Flow Rate FiO2 09/03/20 08:45 97.6 89 16 128/66 (86) 96 Room Air Laboratory Data 24H Labs Laboratory Tests 2 09/03/20 06:37: Bedside Glucose (Misc Panel) 98 09/03/20 08:27: Immature Granulocyte % (Auto) 0.4, Neutrophils (%) (Auto) 66.2H, Lymphocytes (%) (Auto) 21.6L, Monocytes (%) (Auto) 10.2H, Eosinophils (%) (Auto) 1.1, Basophils (%) (Auto) 0.5, Neutrophils # (Auto) 5.3, Lymphocytes # (Auto) 1.7, Monocytes # (Auto) 0.8, Eosinophils # (Auto) 0.1, Basophils # (Auto) 0.0, Nucleated Red Blood Cells % (auto) 0.0, Anion Gap 8, Glomerular Filtration Rate 49.8, Calcium Level 9.1 CBC/BMP Laboratory Tests 09/03/20 08:27 Current Medications Current Medications Medications (Trade) Dose Ordered Sig/Karina Route PRN Reason Start Time Stop Time Status Last Admin Dose Admin Acetaminophen (Tylenol Tab) 650 mg Q6HP PRN PO HEADACHE or DISCOMFORT 08/26/20 17:15 09/01/20 20:04 Al Hydrox/Mg Hydrox/Simethicone (Mylanta) 30 ml Q4HP PRN PO HEARTBURN/INDIGESTION 08/26/20 17:15 Allopurinol (Zyloprim) 300 mg DAILY PO 08/27/20 09:00 09/03/20 09:35 Aripiprazole (AbiLIFY) 5 mg DAILY PO 08/27/20 09:00 08/31/20 14:07 DC 08/31/20 08:34 Aspirin (Ecotrin) 81 mg DAILY PO 08/27/20 09:00 09/03/20 09:35 Carbidopa/Levodopa (Sinemet 25/100) 1 tab TID PO 09/02/20 21:00 09/03/20 09:35 Diazepam (Valium) 5 mg BID PO 08/26/20 21:00 09/03/20 09:35 Docusate Sodium (Colace) 100 mg DAILY PRN PO CONSTIPATION 08/26/20 17:15 09/01/20 20:03 Furosemide (Lasix) 40 mg DAILY PO 08/27/20 09:00 09/03/20 09:35 Home Med (Med Rec Complete!) ASDIRECTED XX 08/26/20 15:30 08/26/20 15:25 DC Magnesium Hydroxide (Milk Of Magnesia) 30 ml DAILYPRN PRN PO CONSTIPATION 08/26/20 17:15 09/02/20 09:57 Olanzapine (ZyPREXA ZYDIS) 5 mg Q4HP PRN PO AGITATION 08/26/20 17:15 Potassium Chloride (Micro-K Extencaps) 10 meq BID PO 08/26/20 21:00 09/03/20 09:35 Sertraline HCl (Zoloft) 200 mg DAILY PO 08/27/20 09:00 09/03/20 07:01 DC 09/02/20 09:55 Trazodone HCl (Desyrel) 50 mg QHSP PRN PO INSOMNIA 08/26/20 17:15 09/03/20 07:01 DC 08/30/20 19:59 Allergies Coded Allergies: Penicillins (Verified Allergy, Intermediate, RASH, 08/26/20) OBED MARK DO Sep 03, 2020 10:29
[2020-09-03 13:05] LABS: ALBUMIN 3.8 GM/DL (3.2-5.2); ALT/SGPT 31 U/L (12-78); BILIRUBIN,TOTAL 0.5 MG/DL (0.2-1.0); MAGNESIUM LEVEL 2.3 MG/DL (1.8-2.4); TOTAL PROTEIN 7.7 GM/DL (6.4-8.2)
[2020-09-03 13:09] LABS: VITAMIN B12 LEVEL 949 PG/ML
--- NOTE | 2020-09-03 13:36 | IPNPDOC ---
Date Seen The patient was seen on 09/03/20. Progress Note SUBJECTIVE: Patient was seen and examined at bedside. Was called by [facility] staff for altered mental status changes this morning at approximately 6 AM. At the time of examination patient had return to baseline, was alert and oriented x 3 and speaking in full meaningful sentences, with a slow speech. He denies having a headache, vision changes, chest pain, shortness of breath, n/v/d. OBJECTIVE PHYSICAL EXAMINATION: VITAL SIGNS: please see below General: NAD, comfortable HEENT: PERRLA, EOMI, sclerae clear Neck: supple, normal ROM, no JVD Respiratory: lungs CTAB, no wheeze, no rales, no crackles CVS: RRR, normal S1, S2, no murmurs Abdo: soft, no masses, no hepatosplenomegaly, BS+, no rebound tenderness Extremities: no edema, pulses 2+ MSK: no joint deformities, normal ROM Neuro: no focal neuro deficits, moving all 4 extremities, CN2-12 intact. Strength 5/5 in all 4 extremities. No nystagmus. Pill-rolling tremor noted in both hands, worse on the left. Shuffling gait. Slow speech. Psych: calm, cooperative, AAO x 3 LABORATORY DATA, IMAGING STUDIES, MICROBIOLOGY: Please see below. DVT prophylaxis ordered?: ordered TEDs ASSESSMENT AND PLAN: Mr. Ames is a 65-year-old male with a history of depression, COPD, stage III, hypertension, hyperuricemia, kidney stones, who was admitted to [facility] for unspecified depression. Hospitalist was called to assess patient due to altered mental status overnight. CT head without contrast performed overnight, showed no acute hemorrhage or edema; small vessel ischemic changes within the periventricular and subcortical white matter, normal burgos-white matter delineation is maintained. Patient was assessed by Dr. George, for parkinsonism, and was started on carbidopa/levidopa. PROBLEMS: Probable parkinsonism: Discussed with Dr. George, patient does exhibit parkinsonian symptoms, recommends obtaining an MRI to assess her further causes of altered mental status. Other differential diagnosis is Lewy body dementia, which is expected to deteriorate while taking carbidopa levodopa. Recommends to obtain EEG. Check B12. PT for assessment of gait stability ordered. Altered mental status: now resolved. monitor. possibly related to dementia. Given parkinsonism, lewy body dementia is on differential. Labs unremarkable. RPR negative. B12 wnl. CKD stage 3 creatinine stable at baseline continue sodi bicarb, lasix, potassium Hypertension continue lasix Hyperuricemia/gout cont allopurinol Depression as per psychiatry VS, I&O, [facility] Vital Signs/I&O Vital Signs Date Time Temp Pulse Resp B/P (MAP) Pulse Ox O2 Delivery O2 Flow Rate FiO2 09/03/20 08:45 97.6 89 16 128/66 (86) 96 Room Air Laboratory Data 24H LABS Laboratory Tests 2 09/03/20 06:37: Bedside Glucose (Misc Panel) 98 09/03/20 08:27: Immature Granulocyte % (Auto) 0.4, Neutrophils (%) (Auto) 66.2H, Lymphocytes (%) (Auto) 21.6L, Monocytes (%) (Auto) 10.2H, Eosinophils (%) (Auto) 1.1, Basophils (%) (Auto) 0.5, Neutrophils # (Auto) 5.3, Lymphocytes # (Auto) 1.7, Monocytes # (Auto) 0.8, Eosinophils # (Auto) 0.1, Basophils # (Auto) 0.0, Nucleated Red Blood Cells % (auto) 0.0, Anion Gap 8, Glomerular Filtration Rate 49.8, Calcium Level 9.1, Magnesium Level 2.3, Total Bilirubin 0.5, Aspartate Amino Transf (AST/SGOT) 31, Alanine Aminotransferase (ALT/SGPT) 31, Alkaline Phosphatase 132H, Total Protein 7.7, Albumin 3.8, Albumin/Globulin Ratio 1.0, Vitamin B12 Level 949, Syphilis Serology NONREACTIVE CBC/BMP Laboratory Tests 09/03/20 08:27 ANTHONY VILLALPANDO MD Sep 03, 2020 13:36
--- NOTE | 2020-09-03 13:45 | CR ---
DATE OF CONSULTATION: 09/02/2020 REFERRING PHYSICIAN: Tone Shirley DO REASON FOR CONSULTATION: Parkinsonism. HISTORY OF PRESENT ILLNESS: Mykel Stearns is a 65-year-old man who was admitted at [facility] due to severe depression and suicidal ideation. The patient has severe depression for several years and has been following with psychiatry on an outpatient basis. The patient was being referred to our office for parkinsonism. The patient states on direct questioning that he has had difficulty with short-term memory for a couple of years. He states that he developed tremor and shuffling gait in the beginning of 2019. Later the patient also stated that he is not sure if he has memory problems or not. The patient denies any family history of parkinsonism. He was briefly on Abilify and as- needed Zyprexa over the last few days after he was admitted at the [facility] for a severe depression and suicidal ideation. He denies dream enactment at night. He denies any trouble with sense of smell. He admits to have constipation. He denies any swallowing difficulty. He states that his handwriting has changed. He appears to have resting tremor of both hands. The left is slightly worse. He denies any falls or loss of consciousness. He denies any headaches, neck or back pain. DIAGNOSTIC STUDIES: CT scan of head was reportedly unremarkable. PAST MEDICAL HISTORY: 1. Severe depression. 2. Hypertension. 3. Chronic kidney disease. 4. Hyperuricemia. 5. Left groin pain and being evaluated by urology. 6. Atrophic left kidney. FAMILY HISTORY: Father at age 49. Mother with a history of depression. SOCIAL HISTORY: He denies smoking, alcohol, or illicit drugs. CURRENT MEDICATIONS: - Captopril 6.25 mg p.o. once - Allopurinol 300 mg p.o. daily - Aspirin 81 mg p.o. daily - Lasix 40 mg p.o. daily - Diazepam 5 mg p.o. twice daily - Potassium chloride 10 mEq p.o. daily - Zyprexa 5 mg p.o. q.4h p.r.n. for agitation - Colace 100 mg p.o. daily REVIEW OF SYSTEMS: All systems reviewed and found to be noncontributory except as mentioned in history of present illness. PHYSICAL EXAMINATION: VITAL SIGNS: Temperature 98.1, pulse 88, respiratory rate 16, blood pressure 146/90. HEART: Regular rate and rhythm. LUNGS: Clear to auscultation. ABDOMEN: Soft, nontender, nondistended. EXTREMITIES: No pedal edema. MUSCULOSKELETAL: No musculoskeletal abnormalities or rash. No signs of meningeal irritation. NEUROLOGIC: No nystagmus. The patient is awake, alert and oriented to place, person, and time. His voice is hypophonic. He has mask-like face. Otherwise with normal comprehension and expression. No facial weakness. Tongue and uvula are midline. Extraocular motions are intact. Visual willoughby are full to confrontation. He has bilateral cogwheel rigidity. He has bilateral arm pill rolling resting tremor, worse on the left side, 5/5 strength in upper extremities. He has decreased rapid movements of his hand and fingers. He has slowing of tapping of both feet. His gait is shuffling. His posture is stooped. Deep tendon reflexes are 2+ throughout. Normal sensation in the feet. No dysmetria although movements are slowed. ASSESSMENT: 1. Parkinsonism due to suspect Parkinson's disease. 2. Lewy body dementia and multiple system atrophy are in the differential diagnosis. 3. Severe depression with suicidal ideation. PLAN: 1. Trial of Sinemet 45/100 mg p.o. three times daily and we will increase it as tolerated depending upon response. If he has significant cognitive side effects from Sinemet or his symptoms do not respond, Lewy body dementia and multiple system atrophy would be more likely. 2. Avoid typical antipsychotics, Abilify, or Risperidone as they will block Sinemet and worsen parkinsonism. 3. Follow with our office in one to two weeks after hospital discharge. MAGDY
[2020-09-03 13:49] LABS: FOLATE 9.6 NG/ML
[2020-09-03 16:07] VITALS: BP 128/77
--- NOTE | 2020-09-03 20:16 | REPVR ---
PROCEDURE INFORMATION: Exam: MR Head Without Contrast Exam date and time: 09/03/2020 6:56 PM Age: 65 years old Clinical indication: Weakness, extremity; Bilateral; Patient HX: Parkinsonism, recurrent AMS TECHNIQUE: Imaging protocol: MR of the head without contrast. COMPARISON: CT Head without contrast 09/03/2020 7:29 AM FINDINGS: Age-related volume loss. Major vascular flow voids at the skull base are preserved. No extra-axial fluid collection. No midline shift or intracranial mass effect. Mild nonspecific white matter gliosis, probable chronic microvascular ischemia. No cerebral edema. No diffusion restriction. Mild paranasal sinus disease. Minimal right-sided mastoid effusion. IMPRESSION: No acute intracranial abnormality. Electronically signed by: Robin Darling On 09/03/2020 20:16:38 PM
[2020-09-04 06:27] VITALS: BP 132/90
[2020-09-04] MEDS: SINEMET 25-100 MG TAB PO SCH ×4 (09:38→18:43)
[2020-09-04] MEDS: diazePAM 5MG TABLET PO SCH ×2 (09:38→21:25)
[2020-09-04] MEDS: allopurinoL 300 MG TAB PO SCH (09:38)
[2020-09-04] MEDS: POTASSIUM CHLORIDE 10 MEQ SR TABLET PO SCH ×2 (09:39→21:25)
[2020-09-04] MEDS: FUROSEMIDE 40 MG TAB PO SCH (09:39)
[2020-09-04] MEDS: ASPIRIN 81 MG ENTERIC TAB PO SCH (09:39)
[2020-09-04 16:27] VITALS: BP 128/90
[2020-09-05] MEDS: POTASSIUM CHLORIDE 10 MEQ SR TABLET PO SCH ×2 (10:06→21:21)
[2020-09-05] MEDS: allopurinoL 300 MG TAB PO SCH (10:06)
[2020-09-05] MEDS: SINEMET 25-100 MG TAB PO SCH ×6 (10:06→18:05)
[2020-09-05] MEDS: diazePAM 5MG TABLET PO SCH ×2 (10:06→21:21)
[2020-09-05] MEDS: ASPIRIN 81 MG ENTERIC TAB PO SCH (10:06)
[2020-09-05] MEDS: FUROSEMIDE 40 MG TAB PO SCH (10:07)
[2020-09-06 06:42] VITALS: BP 148/81
[2020-09-06] MEDS: SINEMET 25-100 MG TAB PO SCH ×5 (08:44→19:53)
[2020-09-06] MEDS: diazePAM 5MG TABLET PO SCH ×2 (09:00→19:53)
[2020-09-06] MEDS: ASPIRIN 81 MG ENTERIC TAB PO SCH (09:00)
[2020-09-06] MEDS: POTASSIUM CHLORIDE 10 MEQ SR TABLET PO SCH ×2 (09:00→19:53)
[2020-09-06] MEDS: FUROSEMIDE 40 MG TAB PO SCH (09:00)
[2020-09-06] MEDS: allopurinoL 300 MG TAB PO SCH (09:00)
--- NOTE | 2020-09-06 09:52 | MHIPNPDOC ---
[facility] Progress Note Progress Note DATE OF SERVICE: 09/06/20 Subjective HPI: Mykel presents today in regard to being notable unusual this weekend and refusing to speak to his and becoming increasingly more symptomatic. Patient appears somewhat confused sometimes. He is currently undergoing a workup for various organic causes at this time, which have not resulted yet. Objective Appearance: Masked facies. Tremor present. Affect: Severely flat. Judgement: Poor. 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 Vital Signs Vital Signs Date Time Temp Pulse Resp B/P (MAP) Pulse Ox O2 Delivery O2 Flow Rate FiO2 09/06/20 06:42 97.5 88 18 148/81 (103) 09/03/20 08:45 96 Room Air Current Medications Current Medications Medications (Trade) Dose Ordered Sig/Karina Route PRN Reason Start Time Stop Time Status Last Admin Dose Admin Acetaminophen (Tylenol Tab) 650 mg Q6HP PRN PO HEADACHE or DISCOMFORT 08/26/20 17:15 09/01/20 20:04 Al Hydrox/Mg Hydrox/Simethicone (Mylanta) 30 ml Q4HP PRN PO HEARTBURN/INDIGESTION 08/26/20 17:15 Allopurinol (Zyloprim) 300 mg DAILY PO 08/27/20 09:00 09/05/20 10:06 Aripiprazole (AbiLIFY) 5 mg DAILY PO 08/27/20 09:00 08/31/20 14:07 DC 08/31/20 08:34 Aspirin (Ecotrin) 81 mg DAILY PO 08/27/20 09:00 09/05/20 10:06 Carbidopa/Levodopa (Sinemet 25/100) 1 tab 0800,1100,1500,1900 PO 09/04/20 11:00 09/06/20 08:44 Carbidopa/Levodopa (Sinemet 25/100) 1 tab QID PO 09/03/20 21:00 09/04/20 10:01 DC 09/04/20 09:38 Carbidopa/Levodopa (Sinemet 25/100) 1 tab TID PO 09/02/20 21:00 09/03/20 15:50 DC 09/03/20 15:15 Diazepam (Valium) 5 mg BID PO 08/26/20 21:00 09/05/20 21:21 Docusate Sodium (Colace) 100 mg DAILY PRN PO CONSTIPATION 08/26/20 17:15 09/01/20 20:03 Furosemide (Lasix) 40 mg DAILY PO 08/27/20 09:00 09/05/20 10:07 Home Med (Med Rec Complete!) ASDIRECTED XX 08/26/20 15:30 08/26/20 15:25 DC Magnesium Hydroxide (Milk Of Magnesia) 30 ml DAILYPRN PRN PO CONSTIPATION 08/26/20 17:15 09/02/20 09:57 Olanzapine (ZyPREXA ZYDIS) 5 mg Q4HP PRN PO AGITATION 08/26/20 17:15 Potassium Chloride (Micro-K Extencaps) 10 meq BID PO 08/26/20 21:00 09/05/20 21:21 Sertraline HCl (Zoloft) 200 mg DAILY PO 08/27/20 09:00 09/03/20 07:01 DC 09/02/20 09:55 Trazodone HCl (Desyrel) 50 mg QHSP PRN PO INSOMNIA 08/26/20 17:15 09/03/20 07:01 DC 08/30/20 19:59 Allergies Coded Allergies: Penicillins (Verified Allergy, Intermediate, RASH, 08/26/20) OBED MARK DO Sep 06, 2020 09:52
--- NOTE | 2020-09-06 14:39 | EEG ---
DATE: 09/03/2020 REFERRING PHYSICIAN: Tone Shirley DO DIAGNOSIS: Depression. EEG#: [id number]. HISTORY: The patient is a 65-year-old man with a history of chronic kidney disease, depression, kidney stones, and parkinsonism who was admitted at [facility] due to severe depression and suicidal ideation. He is currently taking Sinemet, Zoloft, captopril, trazodone, Zyprexa, aspirin, diazepam. TECHNICAL DESCRIPTION: This baseline EEG was recorded by 21-scalp, ear, and two EKG electrodes and was reviewed in bipolar and referential montages following reformatting in 10-20 international electrode placement system. INTERPRETATION: Patient was noted to be in awake and drowsy states during this EEG. Resting and awake background rhythm consisted of 7-8 Hz alpha activity measuring 15-40 microvolts in amplitude, which was symmetric and reactive to eye opening. Attenuation of posterior dominant rhythm was seen during transition to drowsiness. Anteriorly low voltage and mixed frequently activity was noted. No sleep was achieved. Hyperventilation could not be performed. Photic stimulation remained unremarkable. EKG revealed normal sinus rhythm although was affected by artifact. No focal, lateralizing, or epileptiform abnormalities were seen. No relevant clinical activity was noted. CONCLUSION: This EEG in awake, drowsy states is minimally abnormal due to presence of minimal generalized slowing, consistent with minimal nonspecific diffuse cerebellar dysfunction, such as seen in encephalopathy due to multiple potential causes including toxic, metabolic, infectious, medication related causes. No epileptiform abnormalities were seen. Clinical correlation is recommended. [facility]
[2020-09-07 06:20] VITALS: BP 146/110
[2020-09-07] MEDS: SINEMET 25-100 MG TAB PO SCH ×4 (08:00→18:28)
[2020-09-07] MEDS: allopurinoL 300 MG TAB PO SCH (09:24)
[2020-09-07] MEDS: diazePAM 5MG TABLET PO SCH ×2 (09:25→20:41)
[2020-09-07] MEDS: FUROSEMIDE 40 MG TAB PO SCH (09:25)
[2020-09-07] MEDS: ASPIRIN 81 MG ENTERIC TAB PO SCH (09:26)
[2020-09-07] MEDS: POTASSIUM CHLORIDE 10 MEQ SR TABLET PO SCH ×2 (09:26→20:41)
[2020-09-08 06:33] VITALS: BP 145/94
[2020-09-08] MEDS: SINEMET 25-100 MG TAB PO SCH ×4 (09:26→18:00)
[2020-09-08] MEDS: ASPIRIN 81 MG ENTERIC TAB PO SCH (09:26)
[2020-09-08] MEDS: diazePAM 5MG TABLET PO SCH ×2 (09:26→20:36)
[2020-09-08] MEDS: allopurinoL 300 MG TAB PO SCH (09:26)
[2020-09-08] MEDS: FUROSEMIDE 40 MG TAB PO SCH (09:27)
[2020-09-08] MEDS: POTASSIUM CHLORIDE 10 MEQ SR TABLET PO SCH ×2 (09:28→20:36)
[2020-09-08] MEDS: MOM 30ML SUSPENSION UDC PO PRN (11:20)
[2020-09-08 17:15] VITALS: BP 126/78
--- NOTE | 2020-09-08 17:22 | MHIPNPDOC ---
[facility] Progress Note Progress Note DATE OF SERVICE: 09/08/20 HISTORY: As per previous records: "Patient is a 65 -year-old , Retired, Domiciled, , male, who was brought in by his family for suicidal idea tion. Family was noticing his depression. He denies anxiety. Depression had started one month ago. "I had bouts of minor depression but it went away. This time around it came and didn't go away he states." Patient has bilateral essential tremors in both hands and arms. Presents with depressed mood but denies anxiety, reporting poor sleep, poor appetite, having feelings of wanting to be but no having self-harm thoughts. He state that he has an neurological appointment on 08/29/20 for his essential tremors." VITAL SIGNS: See below. NEW TEST RESULTS: See below CURRENT MEDICATIONS: See below. MENTAL STATUS EXAMINATION: Patient is a 65-year old male, who is alert, cooperative, dressed in hospital clothes, disheveled, tremulous. Speech: Is non spontaneous, non fluent, needs prompting. Delayed responses, normal tne and volume, slow.. Thought processes including: blocked at times, not psychotic, depressed Thought content: Positive for depressive thoughts, negative for SI/HI although he says he has had thoughts about killing himself but not recent. he denies SI plans or intent. He denies HI, denies paranoid/bizarre or grandiose delusions. Abstract reasoning and computation: the patient has difficulties with series of 7's but not interpreting proverbs, although he does that slowly. Description of abnormal or psychotic thoughts: He denies psychosis, admits to passive SI without a plan or intent. Denies TAV hallucinations. He was not responding to internal stimuli. Denies HI. Reports feeling very sad about his 's situation, he feels she is very lonely and endorses guilty feelings about him being ill and leaving her home alone Judgment: Fair Insight: Fair Orientation: to persona and location but not to date and time Recent and remote memory: Limited. He is aware about his memory not being great.. Attention span and concentration: Fair. Mood: Depressed and anxious. Affect: congruent with mood, constricted/flat. DIAGNOSES: 1. Major Depressive Disorder, possibly secondary to other Medical condition 2. Parkinson's Disease 3. R/O MARY ASSESSMENT: The patient is very depressed because he has a neurological disorder, he is aware of that. he endorses feeling guilty because he is ill and he is feeling as if he would be a burden to his family. The patient is very depressed, he could probably benefit from a small dose of Wellbutrin since patient is not presenting with psychosis. MANAGEMENT PLAN: Start Wellbutrin 100 mgs (1/2 tab) PO daily in the morning. TIME SPENT: 15 minutes. Vital Signs Vital Signs Date Time Temp Pulse Resp B/P (MAP) Pulse Ox O2 Delivery O2 Flow Rate FiO2 09/08/20 06:33 98.7 76 18 145/94 (111) 09/07/20 06:20 98 Room Air Current Medications Current Medications Medications (Trade) Dose Ordered Sig/Karina Route PRN Reason Start Time Stop Time Status Last Admin Dose Admin Acetaminophen (Tylenol Tab) 650 mg Q6HP PRN PO HEADACHE or DISCOMFORT 08/26/20 17:15 09/01/20 20:04 Al Hydrox/Mg Hydrox/Simethicone (Mylanta) 30 ml Q4HP PRN PO HEARTBURN/INDIGESTION 08/26/20 17:15 Allopurinol (Zyloprim) 300 mg DAILY PO 08/27/20 09:00 09/08/20 09:26 Aripiprazole (AbiLIFY) 5 mg DAILY PO 08/27/20 09:00 08/31/20 14:07 DC 08/31/20 08:34 Aspirin (Ecotrin) 81 mg DAILY PO 08/27/20 09:00 09/08/20 09:26 Carbidopa/Levodopa (Sinemet 25/100) 1 tab 0800,1100,1500,1900 PO 09/04/20 11:00 09/08/20 14:34 Carbidopa/Levodopa (Sinemet 25/100) 1 tab QID PO 09/03/20 21:00 09/04/20 10:01 DC 09/04/20 09:38 Carbidopa/Levodopa (Sinemet 25/100) 1 tab TID PO 09/02/20 21:00 09/03/20 15:50 DC 09/03/20 15:15 Diazepam (Valium) 5 mg BID PO 08/26/20 21:00 09/08/20 09:26 Docusate Sodium (Colace) 100 mg DAILY PRN PO CONSTIPATION 08/26/20 17:15 09/01/20 20:03 Furosemide (Lasix) 40 mg DAILY PO 08/27/20 09:00 09/08/20 09:27 Home Med (Med Rec Complete!) ASDIRECTED XX 08/26/20 15:30 08/26/20 15:25 DC Magnesium Hydroxide (Milk Of Magnesia) 30 ml DAILYPRN PRN PO CONSTIPATION 08/26/20 17:15 09/08/20 11:20 Olanzapine (ZyPREXA ZYDIS) 5 mg Q4HP PRN PO AGITATION 08/26/20 17:15 Potassium Chloride (Micro-K Extencaps) 10 meq BID PO 08/26/20 21:00 09/08/20 09:28 Sertraline HCl (Zoloft) 200 mg DAILY PO 08/27/20 09:00 09/03/20 07:01 DC 09/02/20 09:55 Trazodone HCl (Desyrel) 50 mg QHSP PRN PO INSOMNIA 08/26/20 17:15 09/03/20 07:01 DC 08/30/20 19:59 Allergies Coded Allergies: Penicillins (Verified Allergy, Intermediate, RASH, 08/26/20) GURINDER HORNE MD Sep 08, 2020 16:56
[2020-09-09 07:25] VITALS: BP 145/86
[2020-09-09] MEDS: SINEMET 25-100 MG TAB PO SCH ×4 (08:57→19:34)
[2020-09-09] MEDS ORDERED: buPROPion 100 MG TAB PO SCH (09:00)
[2020-09-09] MEDS: allopurinoL 300 MG TAB PO SCH (09:10)
[2020-09-09] MEDS: diazePAM 5MG TABLET PO SCH (09:10)
[2020-09-09] MEDS: POTASSIUM CHLORIDE 10 MEQ SR TABLET PO SCH ×2 (09:11→19:34)
[2020-09-09] MEDS: FUROSEMIDE 40 MG TAB PO SCH (09:11)
[2020-09-09] MEDS: ASPIRIN 81 MG ENTERIC TAB PO SCH (09:11)
--- NOTE | 2020-09-09 10:28 | MHIPNPDOC ---
[facility] Progress Note Progress Note DATE OF SERVICE: 09/09/20 Subjective HPI: Patient has been attempted to met with, he reports that he does not want to, sitting in a chair, still quite confused today walking into other patients rooms, dating multiple redirections. He thinks that he is at home and appears largely confused. Objective General: poor Speech: sparse Thought processes: tangential Thought content: psychotic delusions Abstract reasoning, and computation: impaired Description of associations: imparied Description of abnormal or psychotic thoughts:Unclear, appears to have psychotic processes going on. Judgment: poor Insight: poor Orientation: confused Recent and remote memory: Intact Attention span and concentration: impaired secondary to thought process Fund of knowledge: unable to determine Mood: "go away" Affect: flat, little reactivity Assessment unspecified encephalopathy unspecified depression Plan EEG shows overt delirium, will discontinue Wellbutrin and benzo, will allow patient to resolve will start Rozerm 8 mg nightly Vital Signs Vital Signs Date Time Temp Pulse Resp B/P (MAP) Pulse Ox O2 Delivery O2 Flow Rate FiO2 09/09/20 07:25 97.7 92 16 145/86 (105) Room Air 09/08/20 17:15 98 Current Medications Current Medications Medications (Trade) Dose Ordered Sig/Karina Route PRN Reason Start Time Stop Time Status Last Admin Dose Admin Acetaminophen (Tylenol Tab) 650 mg Q6HP PRN PO HEADACHE or DISCOMFORT 08/26/20 17:15 09/01/20 20:04 Al Hydrox/Mg Hydrox/Simethicone (Mylanta) 30 ml Q4HP PRN PO HEARTBURN/INDIGESTION 08/26/20 17:15 Allopurinol (Zyloprim) 300 mg DAILY PO 08/27/20 09:00 09/09/20 09:10 Aripiprazole (AbiLIFY) 5 mg DAILY PO 08/27/20 09:00 08/31/20 14:07 DC 08/31/20 08:34 Aspirin (Ecotrin) 81 mg DAILY PO 08/27/20 09:00 09/09/20 09:11 Bupropion HCl (Wellbutrin) 50 mg QAM PO 09/09/20 09:00 09/09/20 09:12 Carbidopa/Levodopa (Sinemet 25/100) 1 tab 0800,1100,1500,1900 PO 09/04/20 11:00 09/09/20 08:57 Carbidopa/Levodopa (Sinemet 25/100) 1 tab QID PO 09/03/20 21:00 09/04/20 10:01 DC 09/04/20 09:38 Carbidopa/Levodopa (Sinemet 25/100) 1 tab TID PO 09/02/20 21:00 09/03/20 15:50 DC 09/03/20 15:15 Diazepam (Valium) 5 mg BID PO 08/26/20 21:00 09/09/20 09:10 Docusate Sodium (Colace) 100 mg DAILY PRN PO CONSTIPATION 08/26/20 17:15 09/01/20 20:03 Furosemide (Lasix) 40 mg DAILY PO 08/27/20 09:00 09/09/20 09:11 Home Med (Med Rec Complete!) ASDIRECTED XX 08/26/20 15:30 08/26/20 15:25 DC Magnesium Hydroxide (Milk Of Magnesia) 30 ml DAILYPRN PRN PO CONSTIPATION 08/26/20 17:15 09/08/20 11:20 Miscellaneous (Unresolved Clarification Entry) SEE LABEL COMMENTS DAILY XX 09/08/20 09:00 09/09/20 07:12 DC 09/08/20 09:00 Olanzapine (ZyPREXA ZYDIS) 5 mg Q4HP PRN PO AGITATION 08/26/20 17:15 Potassium Chloride (Micro-K Extencaps) 10 meq BID PO 08/26/20 21:00 09/09/20 09:11 Sertraline HCl (Zoloft) 200 mg DAILY PO 08/27/20 09:00 09/03/20 07:01 DC 09/02/20 09:55 Trazodone HCl (Desyrel) 50 mg QHSP PRN PO INSOMNIA 08/26/20 17:15 09/03/20 07:01 DC 08/30/20 19:59 Allergies Coded Allergies: Penicillins (Verified Allergy, Intermediate, RASH, 08/26/20) OBED MARK DO Sep 09, 2020 10:28
[2020-09-09 19:10] VITALS: BP 116/76
[2020-09-09] MEDS: RAMELTEON 8 MG TAB (ROZEREM) PO SCH (19:34)
[2020-09-10 06:17] VITALS: BP 141/83
[2020-09-10] MEDS: SINEMET 25-100 MG TAB PO SCH ×4 (08:00→19:32)
[2020-09-10] MEDS: allopurinoL 300 MG TAB PO SCH (09:52)
[2020-09-10] MEDS: FUROSEMIDE 40 MG TAB PO SCH (09:53)
[2020-09-10] MEDS: ASPIRIN 81 MG ENTERIC TAB PO SCH (09:53)
[2020-09-10] MEDS: POTASSIUM CHLORIDE 10 MEQ SR TABLET PO SCH ×2 (09:53→19:33)
--- NOTE | 2020-09-10 12:30 | MHIPNPDOC ---
[facility] Progress Note Progress Note DATE OF SERVICE: 09/10/20 Subjective HPI: The patient is able to be met with, he is less confused but notably slow in his answers, he reports that he feels depressed but has difficulty knowing where he is right now. He appears to be more able to control himself and be redirected. Interview doesn't provide much meaningful information due to his psychomotor slowing. Objective General: fair Speech:, slow Thought processes: more linear Thought content: unknown Abstract reasoning, and computation: more intact Description of associations:, more intact Description of abnormal or psychotic thoughts: denies any SI Judgment: poor Insight: poor Orientation: confused but notably more focused Recent and remote memory: impaired Attention span and concentration: impaired Fund of knowledge:, unable to determine Mood: ["okay"] Affect: flat with little affect Assessment other depressive disorder encephalopathy Plan Continue supportive treatment will observe as he improves Vital Signs Vital Signs Date Time Temp Pulse Resp B/P (MAP) Pulse Ox O2 Delivery O2 Flow Rate FiO2 09/10/20 06:17 97.4 89 18 141/83 (102) Room Air 09/08/20 17:15 98 Current Medications Current Medications Medications (Trade) Dose Ordered Sig/Karina Route PRN Reason Start Time Stop Time Status Last Admin Dose Admin Acetaminophen (Tylenol Tab) 650 mg Q6HP PRN PO HEADACHE or DISCOMFORT 08/26/20 17:15 09/01/20 20:04 Al Hydrox/Mg Hydrox/Simethicone (Mylanta) 30 ml Q4HP PRN PO HEARTBURN/INDIGESTION 08/26/20 17:15 Allopurinol (Zyloprim) 300 mg DAILY PO 08/27/20 09:00 09/10/20 09:52 Aripiprazole (AbiLIFY) 5 mg DAILY PO 08/27/20 09:00 08/31/20 14:07 DC 08/31/20 08:34 Aspirin (Ecotrin) 81 mg DAILY PO 08/27/20 09:00 09/10/20 09:53 Bupropion HCl (Wellbutrin) 50 mg QAM PO 09/09/20 09:00 09/09/20 12:19 DC 09/09/20 09:12 Carbidopa/Levodopa (Sinemet 25/100) 1 tab 0800,1100,1500,1900 PO 09/04/20 11:00 09/10/20 11:03 Carbidopa/Levodopa (Sinemet 25/100) 1 tab QID PO 09/03/20 21:00 09/04/20 10:01 DC 09/04/20 09:38 Carbidopa/Levodopa (Sinemet 25/100) 1 tab TID PO 09/02/20 21:00 09/03/20 15:50 DC 09/03/20 15:15 Diazepam (Valium) 5 mg BID PO 08/26/20 21:00 09/09/20 12:19 DC 09/09/20 09:10 Docusate Sodium (Colace) 100 mg DAILY PRN PO CONSTIPATION 08/26/20 17:15 09/01/20 20:03 Furosemide (Lasix) 40 mg DAILY PO 08/27/20 09:00 09/10/20 09:53 Home Med (Med Rec Complete!) ASDIRECTED XX 08/26/20 15:30 08/26/20 15:25 DC Magnesium Hydroxide (Milk Of Magnesia) 30 ml DAILYPRN PRN PO CONSTIPATION 08/26/20 17:15 09/08/20 11:20 Miscellaneous (Unresolved Clarification Entry) SEE LABEL COMMENTS DAILY XX 09/08/20 09:00 09/09/20 07:12 DC 09/08/20 09:00 Olanzapine (ZyPREXA ZYDIS) 5 mg Q4HP PRN PO AGITATION 08/26/20 17:15 Potassium Chloride (Micro-K Extencaps) 10 meq BID PO 08/26/20 21:00 09/10/20 09:53 Ramelteon (Rozerem) 8 mg QHS PO 09/09/20 21:00 09/09/20 19:34 Sertraline HCl (Zoloft) 200 mg DAILY PO 08/27/20 09:00 09/03/20 07:01 DC 09/02/20 09:55 Trazodone HCl (Desyrel) 50 mg QHSP PRN PO INSOMNIA 08/26/20 17:15 09/03/20 07:01 DC 08/30/20 19:59 Allergies Coded Allergies: Penicillins (Verified Allergy, Intermediate, RASH, 08/26/20) OBED MARK DO Sep 10, 2020 12:30
[2020-09-10 18:07] VITALS: BP_SYST 131; BP_SYST 140; BP_DIAS 78; BP_DIAS 87
[2020-09-10] MEDS: RAMELTEON 8 MG TAB (ROZEREM) PO SCH (19:33)
[2020-09-11 06:38] VITALS: BP 143/79
[2020-09-11] MEDS: SINEMET 25-100 MG TAB PO SCH ×4 (09:05→20:31)
[2020-09-11] MEDS: allopurinoL 300 MG TAB PO SCH (09:05)
[2020-09-11] MEDS: POTASSIUM CHLORIDE 10 MEQ SR TABLET PO SCH ×2 (09:05→20:31)
[2020-09-11] MEDS: ASPIRIN 81 MG ENTERIC TAB PO SCH (09:05)
[2020-09-11] MEDS: FUROSEMIDE 40 MG TAB PO SCH (09:05)
[2020-09-11 17:26] VITALS: BP 130/76
[2020-09-11] MEDS: RAMELTEON 8 MG TAB (ROZEREM) PO SCH (20:31)
[2020-09-12 06:58] VITALS: BP 141/78
[2020-09-12] MEDS: ASPIRIN 81 MG ENTERIC TAB PO SCH (08:54)
[2020-09-12] MEDS: SINEMET 25-100 MG TAB PO SCH ×4 (08:54→18:04)
[2020-09-12] MEDS: FUROSEMIDE 40 MG TAB PO SCH (08:54)
[2020-09-12] MEDS: allopurinoL 300 MG TAB PO SCH (08:54)
[2020-09-12] MEDS: POTASSIUM CHLORIDE 10 MEQ SR TABLET PO SCH ×2 (08:55→20:18)
[2020-09-12 18:22] VITALS: BP 137/80
[2020-09-12] MEDS: RAMELTEON 8 MG TAB (ROZEREM) PO SCH (20:18)
[2020-09-13 06:50] VITALS: BP 136/78
[2020-09-13] MEDS: SINEMET 25-100 MG TAB PO SCH ×4 (07:47→18:25)
[2020-09-13] MEDS: FUROSEMIDE 40 MG TAB PO SCH (09:20)
[2020-09-13] MEDS: ASPIRIN 81 MG ENTERIC TAB PO SCH (09:20)
[2020-09-13] MEDS: POTASSIUM CHLORIDE 10 MEQ SR TABLET PO SCH ×3 (09:21→21:22)
[2020-09-13] MEDS: allopurinoL 300 MG TAB PO SCH (09:21)
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
[2020-09-13 13:58] LABS: CALCIUM LEVEL 9.4 MG/DL (8.8-10.2); CREATININE FOR GFR 1.54 MG/DL (0.70-1.30); GLOMERULAR FILTRATION RATE 48.7 (>49); POTASSIUM SERUM 3.9 MEQ/L (3.5-5.1)
[2020-09-13 16:52] VITALS: BP 121/75
[2020-09-13] MEDS: RAMELTEON 8 MG TAB (ROZEREM) PO SCH ×2 (21:00→21:22)
[2020-09-14] MEDS: SINEMET 25-100 MG TAB PO SCH ×4 (08:00→18:43)
[2020-09-14] MEDS: POTASSIUM CHLORIDE 10 MEQ SR TABLET PO SCH ×2 (10:31→21:51)
[2020-09-14] MEDS: FUROSEMIDE 40 MG TAB PO SCH (10:31)
[2020-09-14] MEDS: ASPIRIN 81 MG ENTERIC TAB PO SCH (10:31)
[2020-09-14] MEDS: allopurinoL 300 MG TAB PO SCH (10:31)
--- NOTE | 2020-09-14 13:27 | MHIPNPDOC ---
[facility] Progress Note Progress Note DATE OF SERVICE: 09/14/20 Subjective HPI: Kain presents today for a follow-up visit. He continues to have some confusion, but during the day that he has been improving becoming more clear and interactive, today he doesn't say much, but interacts at times. He has needed a sitter for several nights. When he was seen he was semiconfused. Objective Speech: Normal rate. Nearly mute. Cognition: Somewhat agitated. Judgement: Poor judgement. Insight: Poor insight. Assessment R41.9 Unspecified symptoms and signs involving cognitive functions and awareness F33.8 Other recurrent depressive disorders Plan Continue Sinemet and rozerm, slowing improving Vital Signs Vital Signs Date Time Temp Pulse Resp B/P (MAP) Pulse Ox O2 Delivery O2 Flow Rate FiO2 09/13/20 16:52 98.1 95 16 121/75 (90) 09/12/20 18:22 99 Room Air Current Medications Current Medications Medications (Trade) Dose Ordered Sig/Karina Route PRN Reason Start Time Stop Time Status Last Admin Dose Admin Acetaminophen (Tylenol Tab) 650 mg Q6HP PRN PO HEADACHE or DISCOMFORT 08/26/20 17:15 09/01/20 20:04 Al Hydrox/Mg Hydrox/Simethicone (Mylanta) 30 ml Q4HP PRN PO HEARTBURN/INDIGESTION 08/26/20 17:15 Allopurinol (Zyloprim) 300 mg DAILY PO 08/27/20 09:00 09/14/20 10:31 Aripiprazole (AbiLIFY) 5 mg DAILY PO 08/27/20 09:00 08/31/20 14:07 DC 08/31/20 08:34 Aspirin (Ecotrin) 81 mg DAILY PO 08/27/20 09:00 09/14/20 10:31 Bupropion HCl (Wellbutrin) 50 mg QAM PO 09/09/20 09:00 09/09/20 12:19 DC 09/09/20 09:12 Carbidopa/Levodopa (Sinemet 25/100) 1 tab 0800,1100,1500,1900 PO 09/04/20 11:00 09/14/20 10:31 Carbidopa/Levodopa (Sinemet 25/100) 1 tab QID PO 09/03/20 21:00 09/04/20 10:01 DC 09/04/20 09:38 Carbidopa/Levodopa (Sinemet 25/100) 1 tab TID PO 09/02/20 21:00 09/03/20 15:50 DC 09/03/20 15:15 Diazepam (Valium) 5 mg BID PO 08/26/20 21:00 09/09/20 12:19 DC 09/09/20 09:10 Docusate Sodium (Colace) 100 mg DAILY PRN PO CONSTIPATION 08/26/20 17:15 09/01/20 20:03 Furosemide (Lasix) 40 mg DAILY PO 08/27/20 09:00 09/14/20 10:31 Home Med (Med Rec Complete!) ASDIRECTED XX 08/26/20 15:30 08/26/20 15:25 DC Magnesium Hydroxide (Milk Of Magnesia) 30 ml DAILYPRN PRN PO CONSTIPATION 08/26/20 17:15 09/08/20 11:20 Miscellaneous (Unresolved Clarification Entry) SEE LABEL COMMENTS DAILY XX 09/08/20 09:00 09/09/20 07:12 DC 09/08/20 09:00 Olanzapine (ZyPREXA ZYDIS) 5 mg Q4HP PRN PO AGITATION 08/26/20 17:15 Potassium Chloride (Micro-K Extencaps) 10 meq BID PO 08/26/20 21:00 09/14/20 10:31 Ramelteon (Rozerem) 8 mg QHS PO 09/09/20 21:00 09/12/20 20:18 Sertraline HCl (Zoloft) 200 mg DAILY PO 08/27/20 09:00 09/03/20 07:01 DC 09/02/20 09:55 Trazodone HCl (Desyrel) 50 mg QHSP PRN PO INSOMNIA 08/26/20 17:15 09/03/20 07:01 DC 08/30/20 19:59 Allergies Coded Allergies: Penicillins (Verified Allergy, Intermediate, RASH, 08/26/20) OBED MARK DO Sep 14, 2020 13:27
[2020-09-14 16:14] VITALS: BP 121/64
[2020-09-14] MEDS: RAMELTEON 8 MG TAB (ROZEREM) PO SCH (21:51)
[2020-09-15] MEDS: SINEMET 25-100 MG TAB PO SCH ×4 (07:33→18:19)
[2020-09-15] MEDS: ASPIRIN 81 MG ENTERIC TAB PO SCH (09:25)
[2020-09-15] MEDS: POTASSIUM CHLORIDE 10 MEQ SR TABLET PO SCH ×2 (09:25→20:05)
[2020-09-15] MEDS: allopurinoL 300 MG TAB PO SCH (09:25)
[2020-09-15] MEDS: FUROSEMIDE 40 MG TAB PO SCH (09:25)
--- NOTE | 2020-09-15 10:20 | MHIPNPDOC ---
[facility] Progress Note Progress Note DATE OF SERVICE: 09/15/20 Subjective HPI: Mykel presents today for a mental health examine. He is notably much improved today. He is still somewhat flat in his affect, but reports that he is feeling much improved. Patients confusion at night appears to be slowly resolving due to the Rozerem. He is notably more engaged and his affect has some reactivity to it. Patient reports that he is feeling good about going home and his wants him to return home. He appears to have significant. Improvement in his insight, suggesting his confusional state is resolving. Objective Behavior: Pleasant. Cooperative with good eye contact. Affect: More reactive in terms of facial expressions. Motor: Tremors appear much improved as he sits comfortably in his chair. Cognition: Improved. More alert, oriented, aware of his surroundings and situation. Thought Form: Logical. Generally linear. Judgement: Improved. Insight: Improved. 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 Patient appears to be making progress. Continue Sinemet at this time. Continue Rozerem at night. Will likely transition to melatonin at home as Rozerem is usually not approved as outpatient due to its expense. Discharge tomorrow. Discharge planners had discussion with about the need for treatment and potentially for more intensive interventions and even alf if his condition continues to worsen. Follow up closely with Neurology after he leaves. Vital Signs Vital Signs Date Time Temp Pulse Resp B/P (MAP) Pulse Ox O2 Delivery O2 Flow Rate FiO2 09/14/20 16:14 97.6 96 16 121/64 (83) 09/12/20 18:22 99 Room Air Current Medications Current Medications Medications (Trade) Dose Ordered Sig/Karina Route PRN Reason Start Time Stop Time Status Last Admin Dose Admin Acetaminophen (Tylenol Tab) 650 mg Q6HP PRN PO HEADACHE or DISCOMFORT 08/26/20 17:15 09/01/20 20:04 Al Hydrox/Mg Hydrox/Simethicone (Mylanta) 30 ml Q4HP PRN PO HEARTBURN/INDIGESTION 08/26/20 17:15 Allopurinol (Zyloprim) 300 mg DAILY PO 08/27/20 09:00 09/15/20 09:25 Aripiprazole (AbiLIFY) 5 mg DAILY PO 08/27/20 09:00 08/31/20 14:07 DC 08/31/20 08:34 Aspirin (Ecotrin) 81 mg DAILY PO 08/27/20 09:00 09/15/20 09:25 Bupropion HCl (Wellbutrin) 50 mg QAM PO 09/09/20 09:00 09/09/20 12:19 DC 09/09/20 09:12 Carbidopa/Levodopa (Sinemet 25/100) 1 tab 0800,1100,1500,1900 PO 09/04/20 11:00 09/15/20 07:33 Carbidopa/Levodopa (Sinemet 25/100) 1 tab QID PO 09/03/20 21:00 09/04/20 10:01 DC 09/04/20 09:38 Carbidopa/Levodopa (Sinemet 25/100) 1 tab TID PO 09/02/20 21:00 09/03/20 15:50 DC 09/03/20 15:15 Diazepam (Valium) 5 mg BID PO 08/26/20 21:00 09/09/20 12:19 DC 09/09/20 09:10 Docusate Sodium (Colace) 100 mg DAILY PRN PO CONSTIPATION 08/26/20 17:15 09/01/20 20:03 Furosemide (Lasix) 40 mg DAILY PO 08/27/20 09:00 09/15/20 09:25 Home Med (Med Rec Complete!) ASDIRECTED XX 08/26/20 15:30 08/26/20 15:25 DC Magnesium Hydroxide (Milk Of Magnesia) 30 ml DAILYPRN PRN PO CONSTIPATION 08/26/20 17:15 09/08/20 11:20 Miscellaneous (Unresolved Clarification Entry) SEE LABEL COMMENTS DAILY XX 09/08/20 09:00 09/09/20 07:12 DC 09/08/20 09:00 Olanzapine (ZyPREXA ZYDIS) 5 mg Q4HP PRN PO AGITATION 08/26/20 17:15 Potassium Chloride (Micro-K Extencaps) 10 meq BID PO 08/26/20 21:00 09/15/20 09:25 Ramelteon (Rozerem) 8 mg QHS PO 09/09/20 21:00 09/14/20 21:51 Sertraline HCl (Zoloft) 200 mg DAILY PO 08/27/20 09:00 09/03/20 07:01 DC 09/02/20 09:55 Trazodone HCl (Desyrel) 50 mg QHSP PRN PO INSOMNIA 08/26/20 17:15 09/03/20 07:01 DC 08/30/20 19:59 Allergies Coded Allergies: Penicillins (Verified Allergy, Intermediate, RASH, 08/26/20) OBED MARK DO Sep 15, 2020 10:20
[2020-09-15] MEDS: MOM 30ML SUSPENSION UDC PO PRN (13:16)
[2020-09-15 16:25] VITALS: BP 112/67
[2020-09-15] MEDS: RAMELTEON 8 MG TAB (ROZEREM) PO SCH (20:05)
[2020-09-16] MEDS: SINEMET 25-100 MG TAB PO SCH ×2 (07:54→11:05)
[2020-09-16] MEDS: ASPIRIN 81 MG ENTERIC TAB PO SCH (09:08)
[2020-09-16] MEDS: FUROSEMIDE 40 MG TAB PO SCH (09:09)
[2020-09-16] MEDS: POTASSIUM CHLORIDE 10 MEQ SR TABLET PO SCH (09:09)
[2020-09-16] MEDS: allopurinoL 300 MG TAB PO SCH (09:09)
--- NOTE | 2020-09-16 11:13 | MHDSPDOC ---
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 He was admitted. He reported depression at times but had cognitive difficulties with significant sundowning at night he eventually did An EEG show ing delirium as the likely cause of his presenting problem. He was then taken off the diazepam Wellbutrin that had been placed by the on-call provider and observed for several days just on cinnamon and rosarium to help prevent the Delirious episodes. He did well, made good Improvement becoming much more engaged and is affect even improved someone from his Baseline when he first arr ived. MEDICATIONS: Initially, he was on diazepam Sertraline, and Abilify. However, after consultation with Neurology, they requested the removal of the Abilify. He was seen insert on sentiment which appeared to boost an unusual reaction that was concerning for serotonin syndrome of which he was taken off the Zoloft. DISCHARGE ASSESSMENT[improved] Legal status considerations: The patient at the time of discharge did not meet criteria for involuntary admission/extension due to having a improved mental status exam, improved insight into the situation, They are engaged in the discharge process, as well as being friendly and amenable in behavioral control and havent been engaging in any observed concerning behavior or ideation recently. They decline voluntary extension/admission at this time and must be discharged in good addie, as Im unable to make a case for holding the patient against their will. They may have historical risk factors of admissions and other interactions with psychiatry however, those are not modifiable from a clinical perspective. The patient will need to be discharged in good addie. MENTAL STATUS EXAMINATION ON DISCHARGE: Appearance: Well nourished. Appears to be stated age. Well groomed. Behavior: Much more reactive than previous. Tremors are not as noticeable. Speech: More fluid. Thought Form: Linear and goal directed. Judgement: Improved. Insight: Improved. PLAN/FOLLOWUP ARRANGEMENTS: Follow up appointments made (PCP and MH in 5 days of D/C date) and safety plan completed. Safety Planning aspects completed prior to discharge [Medication supplies limited to 7 days with 4 refills to prevent accumulation to OD] [Family contact completed, educated on safe practices, instructed on removal and mitigation of dangerous means] [RN reviewed crisis hotline information and other aspects to empower patient to access care in interim before next appointment.] The amount of time spent in the coordination of care for this patient was approximately 30 minutes. Vital Signs/I&Os Vital Signs Date Time Temp Pulse Resp B/P (MAP) Pulse Ox O2 Delivery O2 Flow Rate FiO2 09/15/20 16:25 98.8 81 16 112/67 (82) 09/15/20 10:43 Room Air 09/12/20 18:22 99 Medications Scheduled Allopurinol (Zyloprim) 300 Mg Tablet, 300 MG PO DAILY, (Reported) Aspirin (Aspir 81) 81 Mg Tablet.dr, 81 MG PO DAILY, (Reported) Carbidopa/Levodopa (Carbidopa-Levodopa 25-100 Tab) 1 Each Tablet, 1 TAB PO 0800,1100,1500,1900 for tremors for 7 Days, #21 Furosemide (Furosemide) 40 Mg Tablet, 40 MG PO DAILY, (Reported) Melatonin (Melatonin) 3 Mg Tablet, 1 TAB PO QPM for sleep for 30 Days, #30 Potassium Chloride (Potassium Chloride) 10 Meq Tablet.er, 10 MEQ PO BID, (Reported) Scheduled PRN Docusate Sodium (Docusate Sodium) 100 Mg Capsule, 100 MG PO DAILY PRN for CONSTIPATION, (Reported) Allergies Coded Allergies: Penicillins (Verified Allergy, Intermediate, RASH, 08/26/20) OBED MARK DO Sep 16, 2020 11:13
[2020-09-16] MEDS ORDERED: CARB25TA9 PO (11:36)
[2020-09-16] MEDS ORDERED: MELA3TAB30 PO (11:36)
== END 2020-09-10 13:50 | disposition home or self-care (01) | DRG 42 ==
LOC: M ED 08:18 → OBSVTOIN 17:15 → M ED INP 17:15 → INTOOBSV 17:15 → M PSY 18:25 → M ED INP 18:25 → M PSY 08-28 03:44 → UNDODISOB 09-16 13:50
PROVIDERS: ADMIT Psychiatry & Neurology Addiction Medicine; ATTEND Psychiatry & Neurology Addiction Medicine
DX: G31.83 Neurocognitive disorder with Lewy bodies (principal); F02.81 Dementia in other diseases classified elsewhere, unspecified severity, with behavioral disturbance; N18.30 Chronic kidney disease, stage 3 unspecified; G25.0 Essential tremor; F06.31 Mood disorder due to known physiological condition with depressive features; N26.1 Atrophy of kidney (terminal); E79.0 Hyperuricemia without signs of inflammatory arthritis and tophaceous disease; G47.00 Insomnia, unspecified; I12.9 Hypertensive chronic kidney disease with stage 1 through stage 4 chronic kidney disease, or unspecified chronic kidney disease; Z88.0 Allergy status to penicillin; Z79.82 Long term (current) use of aspirin; Z79.899 Other long term (current) drug therapy

== ENCOUNTER 2021-05-28 09:02 | Inpatient (IN) | payer BC ==
[~2021-05-28] VITALS: Ht 167.6 cm; Wt 97.0 kg
[~2021-05-28 09:02] MED LIST changes: +ARIP1TAB6 PO; +ASPI81TA86 PO; +CARB25TA9 PO; +DOCU100C16 PO; +FURO40TA2 PO; +MELA3TAB30 PO; +POTA1TAB23 PO; +SERT-138 PO; +TRAZ-186 PO
[2021-05-28 10:27] LABS: BASO # 0.1 10^3/uL (0.0-0.2); EOS # 0.2 10^3/uL (0.0-0.5); EOS % 2.7 % (0.0-3.0); HEMATOCRIT 47.6 % (42.0-52.0); HEMOGLOBIN 16.2 g/dl (13.5-17.5); LYMPH # 1.7 10^3/uL (1.5-5.0); LYMPH % 24.8 % (24.0-44.0); MEAN CORPUSCULAR HEMOGLOBIN 33.1 pg (27.0-33.0); MEAN CORPUSCULAR VOLUME 97.1 fl (80.0-96.0); MONO # 0.6 10^3/uL (0.0-0.8); MONO % 8.5 % (2.0-8.0); NEUTROPHILS # 4.3 10^3/uL (1.5-8.5); NEUTROPHILS % 62.3 % (36.0-66.0); PLATELET COUNT, AUTOMATED 217 10^3/uL (150-450); WHITE BLOOD COUNT 6.9 10^3/uL (4.0-10.0)
[2021-05-28 10:50] LABS: OSMOLALITY SERUM 301 MOSM/KG (280-301)
[2021-05-28 11:00] LABS: ALBUMIN 3.7 GM/DL (3.2-5.2); ALT/SGPT 13 U/L (12-78); BILIRUBIN,DIRECT < 0.1 MG/DL (0.0-0.2); BILIRUBIN,TOTAL 0.3 MG/DL (0.2-1.0); BLOOD UREA NITROGEN 31 MG/DL (7-18); CALCIUM LEVEL 8.9 MG/DL (8.8-10.2); CARBON DIOXIDE LEVEL 31 MEQ/L (21-32); CHLORIDE LEVEL 103 MEQ/L (98-107); CPK CREATINE PHOSPHOKINASE 348 U/L (39-308); CREATININE FOR GFR 1.46 MG/DL (0.70-1.30); GLOMERULAR FILTRATION RATE 51.7 (>49); GLUCOSE, FASTING 107 MG/DL (70-100); MB/CK RELATIVE INDEX 0.57 (< OR =4); POTASSIUM SERUM 5.4 MEQ/L (3.5-5.1); SODIUM LEVEL 139 MEQ/L (136-145); TROPONIN I < 0.02 NG/ML (< 0.10)
[2021-05-28] MEDS ORDERED: SOD POLYSTYRENE SULFONATE SUSP 15 GM/60 ML UD PO ONE (13:15)
[2021-05-28] MEDS ORDERED: CALCIUM GLUCONATE 1,000 MG in D5W MINI-BAG PLUS 100 ML IV ONE (13:15)
[2021-05-28] MEDS ORDERED: NS 1,000 ML IV ONE (13:15)
[2021-05-28 13:35] LABS: C REACTIVE PROTEIN QUANTITATIV 0.94 MG/DL (0.00-0.30)
[2021-05-28] MEDS ORDERED: ALLO300T2 PO (13:46)
[2021-05-28] MEDS ORDERED: QUET1TAB17 PO (13:46)
[2021-05-28] MEDS ORDERED: PARO30TA4 PO (13:46)
[2021-05-28] MEDS ORDERED: MIRT-60 PO (13:46)
[2021-05-28] MEDS ORDERED: POTA4.25 PO (13:46)
[2021-05-28] MEDS ORDERED: DIAZ5TAB PO (13:46)
[2021-05-28] MEDS ORDERED: MIRA3350 PO (13:58)
[2021-05-28] MEDS ORDERED: CARB25TA9 PO (13:58)
[2021-05-28] MEDS ORDERED: HOME MED LIST COMPLETE! XX SCH (14:00)
[2021-05-28] MEDS ORDERED: ENOXAPARIN 40MG/0.4ML SYRINGE (J1650 PER 10MG) SC ONE (14:00)
[2021-05-28 14:22] LABS: ERYTHROCYTE SEDIMENTATION RATE 20 mm/hr (0-20)
[2021-05-28] MEDS ORDERED: MIRALAX *UNIT DOSE* 17GM PACKET PO PRN (15:10)
[2021-05-28 17:30] VITALS: BP 155/86
[2021-05-28] MEDS: LACTULOSE 20 GM/30 ML SYRUP UD PO SCH ×3 (19:02→22:58)
[2021-05-28] MEDS: SINEMET 25-100 MG TAB PO SCH (20:52)
[2021-05-28] MEDS: MIRTAZAPINE 15 MG TAB PO SCH (20:52)
[2021-05-28 21:00] VITALS: BP_SYST 119; BP_SYST 141; BP_SYST 150; BP_DIAS 75; BP_DIAS 82; BP_DIAS 84
[2021-05-28 21:10] LABS: CALCIUM LEVEL 8.3 MG/DL (8.8-10.2); CREATININE FOR GFR 1.61 MG/DL (0.70-1.30); GLOMERULAR FILTRATION RATE 46.2 (>49); POTASSIUM SERUM 4.1 MEQ/L (3.5-5.1)
[2021-05-28] MEDS: diazePAM 5MG TABLET PO PRN (21:13)
[2021-05-29 02:00] VITALS: BP_SYST 118; BP_SYST 123; BP_SYST 125; BP_DIAS 77; BP_DIAS 79; BP_DIAS 94
[2021-05-29 02:26] LABS: AMPHETAMINES LEVEL URINE NEGATIVE (NEGATIVE); BARBITURATES URINE NEGATIVE (NEGATIVE); BENZODIAZEPINES URINE POSITIVE (NEGATIVE); CANNABINOIDS URINE NEGATIVE (NEGATIVE); COCAINE METABOLITE URINE NEGATIVE (NEGATIVE); METHADONE URINE NEGATIVE (NEGATIVE); OPIATES URINE NEGATIVE (NEGATIVE); PHENCYCLIDINE URINE NEGATIVE (NEGATIVE)
[2021-05-29 06:30] VITALS: BP_SYST 120; BP_SYST 126; BP_SYST 130; BP_DIAS 79; BP_DIAS 83; BP_DIAS 85
[2021-05-29 07:13] LABS: BASO # 0.1 10^3/uL (0.0-0.2); BASO % 0.6 % (0.0-1.0); EOS # 0.3 10^3/uL (0.0-0.5); EOS % 3.6 % (0.0-3.0); HEMATOCRIT 46.8 % (42.0-52.0); HEMOGLOBIN 15.8 g/dl (13.5-17.5); LYMPH # 2.6 10^3/uL (1.5-5.0); LYMPH % 33.2 % (24.0-44.0); MEAN CORPUSCULAR HEMOGLOBIN 33.3 pg (27.0-33.0); MEAN CORPUSCULAR HGB CONC 33.8 g/dl (32.0-36.5); MEAN CORPUSCULAR VOLUME 98.5 fl (80.0-96.0); MONO # 0.9 10^3/uL (0.0-0.8); NEUTROPHILS % 51.1 % (36.0-66.0); PLATELET COUNT, AUTOMATED 221 10^3/uL (150-450); RED BLOOD COUNT 4.75 10^6/uL (4.30-6.10); WHITE BLOOD COUNT 7.8 10^3/uL (4.0-10.0)
[2021-05-29 07:42] LABS: ALBUMIN 3.5 GM/DL (3.2-5.2); ALT/SGPT 22 U/L (12-78); BILIRUBIN,DIRECT < 0.1 MG/DL (0.0-0.2); BILIRUBIN,TOTAL 0.3 MG/DL (0.2-1.0); BLOOD UREA NITROGEN 27 MG/DL (7-18); CALCIUM LEVEL 8.9 MG/DL (8.8-10.2); CARBON DIOXIDE LEVEL 30 MEQ/L (21-32); CHLORIDE LEVEL 105 MEQ/L (98-107); CREATININE FOR GFR 1.53 MG/DL (0.70-1.30); GLUCOSE, FASTING 123 MG/DL (70-100); MAGNESIUM LEVEL 2.1 MG/DL (1.8-2.4); POTASSIUM SERUM 4.3 MEQ/L (3.5-5.1); SODIUM LEVEL 142 MEQ/L (136-145); TOTAL PROTEIN 7.6 GM/DL (6.4-8.2)
[2021-05-29] MEDS: allopurinoL 300 MG TAB PO SCH (09:07)
[2021-05-29] MEDS: FUROSEMIDE 40 MG TAB PO SCH (09:08)
[2021-05-29] MEDS: SINEMET 25-100 MG TAB PO SCH ×4 (09:08→20:28)
[2021-05-29] MEDS: ENOXAPARIN 40MG/0.4ML SYRINGE (J1650 PER 10MG) SC SCH (09:08)
[2021-05-29] MEDS ORDERED: PILL CUTTER 1 EACH XX PRN (10:15)
[2021-05-29 14:00] VITALS: BP 118/78
[2021-05-29] MEDS ORDERED: ROLLMIS8 XX ×2 (15:32→15:33)
[2021-05-29] MEDS: diazePAM 5MG TABLET PO PRN (20:28)
[2021-05-29] MEDS: MIRTAZAPINE 15 MG TAB PO SCH (20:28)
[2021-05-29 22:00] VITALS: BP 131/71
[2021-05-30] VITALS (10 sets, daily range): BP systolic 97–164; BP diastolic 53–82
[2021-05-30] MEDS ORDERED: LACTULOSE 20 GM/30 ML SYRUP UD PR ONE (03:00)
[2021-05-30 03:03] LABS: HEMATOCRIT 44.4 % (42.0-52.0); HEMOGLOBIN 15.1 g/dl (13.5-17.5); MEAN CORPUSCULAR HEMOGLOBIN 33.5 pg (27.0-33.0); MEAN CORPUSCULAR VOLUME 98.4 fl (80.0-96.0); PLATELET COUNT, AUTOMATED 205 10^3/uL (150-450); RED BLOOD COUNT 4.51 10^6/uL (4.30-6.10); WHITE BLOOD COUNT 7.6 10^3/uL (4.0-10.0)
[2021-05-30 03:42] LABS: ALBUMIN 3.5 GM/DL (3.2-5.2); ALT/SGPT 14 U/L (12-78); BILIRUBIN,TOTAL 0.3 MG/DL (0.2-1.0); BLOOD UREA NITROGEN 33 MG/DL (7-18); CALCIUM LEVEL 8.1 MG/DL (8.8-10.2); CARBON DIOXIDE LEVEL 31 MEQ/L (21-32); CHLORIDE LEVEL 103 MEQ/L (98-107); FREE T4 0.88 NG/DL (0.76-1.46); GLOMERULAR FILTRATION RATE 46.6 (>49); GLUCOSE, FASTING 150 MG/DL (70-100); POTASSIUM SERUM 3.8 MEQ/L (3.5-5.1); SODIUM LEVEL 141 MEQ/L (136-145); TOTAL PROTEIN 7.4 GM/DL (6.4-8.2); TROPONIN I < 0.02 NG/ML (< 0.10)
[2021-05-30 06:56] LABS: BASO # 0.1 10^3/uL (0.0-0.2); BASO % 0.9 % (0.0-1.0); EOS # 0.3 10^3/uL (0.0-0.5); EOS % 4.1 % (0.0-3.0); HEMATOCRIT 42.7 % (42.0-52.0); HEMOGLOBIN 14.6 g/dl (13.5-17.5); LYMPH % 30.6 % (24.0-44.0); MEAN CORPUSCULAR HEMOGLOBIN 33.3 pg (27.0-33.0); MEAN CORPUSCULAR HGB CONC 34.2 g/dl (32.0-36.5); MEAN CORPUSCULAR VOLUME 97.3 fl (80.0-96.0); MONO # 0.7 10^3/uL (0.0-0.8); MONO % 11.1 % (2.0-8.0); NEUTROPHILS # 3.5 10^3/uL (1.5-8.5); NEUTROPHILS % 52.7 % (36.0-66.0); PLATELET COUNT, AUTOMATED 200 10^3/uL (150-450); RED BLOOD COUNT 4.39 10^6/uL (4.30-6.10); WHITE BLOOD COUNT 6.6 10^3/uL (4.0-10.0)
[2021-05-30 07:27] LABS: CALCIUM LEVEL 8.4 MG/DL (8.8-10.2); CREATININE FOR GFR 1.42 MG/DL (0.70-1.30); GLOMERULAR FILTRATION RATE 53.4 (>49); MAGNESIUM LEVEL 2.2 MG/DL (1.8-2.4); POTASSIUM SERUM 4.1 MEQ/L (3.5-5.1)
[2021-05-30] MEDS: ENOXAPARIN 40MG/0.4ML SYRINGE (J1650 PER 10MG) SC SCH (09:05)
[2021-05-30] MEDS: SINEMET 25-100 MG TAB PO SCH ×3 (09:05→15:57)
[2021-05-30] MEDS: FUROSEMIDE 40 MG TAB PO SCH (09:06)
[2021-05-30] MEDS: allopurinoL 300 MG TAB PO SCH (09:06)
[2021-05-30] MEDS ORDERED: CARB25TA9 PO (09:20)
[2021-05-30 10:52] LABS: PROLACTIN 8.8 NG/ML (2.1-17.7)
[2021-05-30 12:27] LABS: FOLATE > 24.0 NG/ML (>5.4)
== END 2021-05-30 16:35 | disposition home health service (06) | DRG 42 ==
LOC: M ED 09:02 → M ED INP 13:08 → M MS5PR 17:30
PROVIDERS: ADMIT General Practice; ATTEND General Practice
DX: G20 Parkinson's disease (principal); I12.9 Hypertensive chronic kidney disease with stage 1 through stage 4 chronic kidney disease, or unspecified chronic kidney disease; G31.83 Neurocognitive disorder with Lewy bodies; N18.30 Chronic kidney disease, stage 3 unspecified; F32.9 Major depressive disorder, single episode, unspecified; M10.9 Gout, unspecified; Z79.899 Other long term (current) drug therapy

== ENCOUNTER 2021-07-16 15:46 | Emergency (ER) | payer BC ==
[~2021-07-16] VITALS: Ht 160 cm; Wt 98.7 kg
[~2021-07-16 15:46] MED LIST changes: +ALLO300T2 PO; +MIRA3350 PO; +MIRT-60 PO; +PARO30TA4 PO; +POTA4.25 PO; +QUET1TAB17 PO; +ROLLMIS8 XX
[2021-07-16 15:47] VITALS: BP 141/82
== END 2021-07-16 18:12 | disposition home or self-care (01) ==
LOC: M ED 15:46
DX: G20 Parkinson's disease (principal); N18.9 Chronic kidney disease, unspecified; Z88.0 Allergy status to penicillin; Z79.899 Other long term (current) drug therapy

== ENCOUNTER 2021-07-21 05:25 | Inpatient (IN) | payer MEDICARE, OTHER ==
[~2021-07-21] VITALS: Ht 162.6 cm; Wt 100.6 kg
[2021-07-21 06:29] LABS: HEMATOCRIT 48.5 % (42.0-52.0); HEMOGLOBIN 16.7 g/dl (13.5-17.5); MEAN CORPUSCULAR HEMOGLOBIN 33.6 pg (27.0-33.0); MEAN CORPUSCULAR HGB CONC 34.4 g/dl (32.0-36.5); MEAN CORPUSCULAR VOLUME 97.6 fl (80.0-96.0); PLATELET COUNT, AUTOMATED 240 10^3/uL (150-450); RED BLOOD COUNT 4.97 10^6/uL (4.30-6.10); WHITE BLOOD COUNT 8.1 10^3/uL (4.0-10.0)
[2021-07-21 07:03] LABS: ACETAMINOPHEN LEVEL < 2.0 UG/ML (10.0-30.0); ALT/SGPT 22 U/L (12-78); BILIRUBIN,DIRECT < 0.1 MG/DL (0.0-0.2); BILIRUBIN,TOTAL 0.4 MG/DL (0.2-1.0); BLOOD UREA NITROGEN 31 MG/DL (7-18); CALCIUM LEVEL 9.1 MG/DL (8.8-10.2); CARBON DIOXIDE LEVEL 29 MEQ/L (21-32); CHLORIDE LEVEL 104 MEQ/L (98-107); CREATININE FOR GFR 1.64 MG/DL (0.70-1.30); ETHYL ALCOHOL (ETHANOL) < 0.003 % (0.000-0.010); GLOMERULAR FILTRATION RATE 45.3 (>49); GLUCOSE, FASTING 125 MG/DL (70-100); POTASSIUM SERUM 4.1 MEQ/L (3.5-5.1); SALICYLATE LEVEL < 1.7 MG/DL (5.0-30.0); SODIUM LEVEL 139 MEQ/L (136-145); TOTAL PROTEIN 8.4 GM/DL (6.4-8.2)
[2021-07-21 08:06] LABS: AMPHETAMINES LEVEL URINE NEGATIVE (NEGATIVE); BARBITURATES URINE NEGATIVE (NEGATIVE); BENZODIAZEPINES URINE POSITIVE (NEGATIVE); CANNABINOIDS URINE NEGATIVE (NEGATIVE); COCAINE METABOLITE URINE NEGATIVE (NEGATIVE); METHADONE URINE NEGATIVE (NEGATIVE); OPIATES URINE NEGATIVE (NEGATIVE); PHENCYCLIDINE URINE NEGATIVE (NEGATIVE)
[2021-07-21] MEDS: FUROSEMIDE 40 MG TAB PO SCH (09:00)
[2021-07-21] MEDS ORDERED: CARB25TA9 PO (11:19)
[2021-07-21] MEDS ORDERED: HOME MED LIST COMPLETE! XX SCH (11:20)
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
[2021-07-21] MEDS ORDERED: diazePAM 5MG TABLET PO PRN (12:35)
[2021-07-21] MEDS ORDERED: MAALOX 30 ML SUSP *UDC PO PRN (12:35)
[2021-07-21] MEDS ORDERED: MOM 30ML SUSPENSION UDC PO PRN (12:35)
[2021-07-21] MEDS ORDERED: ACETAMINOPHEN TAB 650MG DOSE (2X325MG) PO PRN (12:35)
[2021-07-21] MEDS: SINEMET 25-100 MG TAB PO SCH ×3 (13:00→21:34)
[2021-07-21 14:24] LABS: RSV AMPLIFICATION NEGATIVE (NEGATIVE)
[2021-07-21] MEDS: FOLIC ACID 1 MG TAB PO SCH (15:37)
[2021-07-21] MEDS: PARoxetine 10MG TABLET PO SCH (15:38)
[2021-07-21] MEDS: THIAMINE 100 MG TAB PO SCH ×2 (15:39→21:34)
[2021-07-21] MEDS: MULTIVITAMINS/MINERALS THERAP 1 TAB PO SCH (15:39)
[2021-07-21 16:26] VITALS: BP 156/86
[2021-07-21] MEDS: allopurinoL 300 MG TAB PO SCH (17:39)
[2021-07-21] MEDS ORDERED: haloperidoL 5 MG TAB PO PRN (21:40)
[2021-07-21 23:33] VITALS: BP 140/78
[2021-07-21] MEDS: LORazepam 2 MG TAB PO PRN (23:55)
[2021-07-22 01:18] VITALS: BP 170/98
[2021-07-22] MEDS ORDERED: diazePAM 2 MG TAB PO PRN (01:30)
[2021-07-22] MEDS: LORazepam 2 MG TAB PO PRN ×2 (01:38→07:13)
[2021-07-22] MEDS: traZODone 50 MG TAB PO PRN (01:38)
[2021-07-22 07:09] VITALS: BP 146/80
[2021-07-22 07:42] VITALS: BP 146/80
[2021-07-22] MEDS ORDERED: QUEtiapine FUMARATE 50MG TAB PO ONE (07:50)
[2021-07-22] MEDS ORDERED: QUEtiapine FUMARATE 50MG TAB PO PRN (08:20)
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
[2021-07-22] MEDS: THIAMINE 100 MG TAB PO SCH (08:47)
[2021-07-22] MEDS: FUROSEMIDE 40 MG TAB PO SCH (08:47)
[2021-07-22] MEDS: PARoxetine 10MG TABLET PO SCH (08:47)
[2021-07-22] MEDS: QUEtiapine FUMARATE 50MG TAB PO SCH (08:47)
[2021-07-22] MEDS: FOLIC ACID 1 MG TAB PO SCH (08:47)
[2021-07-22] MEDS: MULTIVITAMINS/MINERALS THERAP 1 TAB PO SCH (08:48)
[2021-07-22] MEDS: SINEMET 25-100 MG TAB PO SCH ×3 (08:48→21:59)
[2021-07-22] MEDS: allopurinoL 300 MG TAB PO SCH (08:48)
[2021-07-22 14:07] LABS: ALBUMIN 3.6 GM/DL (3.2-5.2); BILIRUBIN,TOTAL 0.4 MG/DL (0.2-1.0); CREATININE FOR GFR 1.69 MG/DL (0.70-1.30); GLOMERULAR FILTRATION RATE 43.7 (>49)
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
[2021-07-22] MEDS: MIRALAX *UNIT DOSE* 17GM PACKET PO PRN (16:36)
--- NOTE | 2021-07-22 16:39 | REP ---
INDICATION: r/o infiltrate. COMPARISON: None. TECHNIQUE: Single portable AP view of the chest was performed. FINDINGS: There appear to be bibasilar fibro atelectatic changes, with no definite acute infiltrate. However, without prior radiographs, a subtle acute abnormality in lung the bases would be difficult to exclude. The heart is not felt to be significantly enlarged. The mediastinal silhouette appears unremarkable. IMPRESSION: No definite acute infiltrate. There appear to be bibasilar fibro atelectatic changes. <Electronically signed by Emigdio Cruz > 07/22/21 [id number]
[2021-07-22 16:40] VITALS: BP 144/83
[2021-07-22] MEDS ORDERED: QUEtiapine FUMARATE **XR** 200MG TABLET PO SCH (21:00)
[2021-07-22] MEDS ORDERED: QUEtiapine FUMERATE XR 50 MG TABER PO SCH (21:00)
[2021-07-22] MEDS: MIRTAZAPINE 15 MG TAB PO SCH (21:59)
[2021-07-22] MEDS: QUEtiapine FUMERATE XR 50 MG TABER PO SCH (21:59)
[2021-07-23 06:15] VITALS: BP 117/70
--- NOTE | 2021-07-23 08:33 | REPVR ---
PROCEDURE INFORMATION: Exam: CT Head Without Contrast Exam date and time: 07/23/2021 7:24 AM Age: 65 years old Clinical indication: Altered mental status/memory loss; Additional info: Concern for AMS TECHNIQUE: Imaging protocol: Computed tomography of the head without contrast. Radiation optimization: All CT scans at this facility use at least one of these dose optimization techniques: automated exposure control; mA and/or kV adjustment per patient size (includes targeted exams where dose is matched to clinical indication); or iterative reconstruction. COMPARISON: CT Head without contrast 05/30/2021 2:49 AM FINDINGS: Brain: Lucencies in the white matter, most suggestive of chronic microvascular ischemic disease, do not appear significantly changed. There is no evidence for large acute cortical infarct. No intracranial hemorrhage or extraaxial collection is identified. There is no significant intracranial mass effect. Cerebral ventricles: The ventricles and sulci are stable in configuration, with similar atrophy. Paranasal sinuses: Visualized sinuses are unremarkable. No fluid levels. Mastoid air cells: Visualized mastoid air cells are well aerated. Bones/joints: Unremarkable. No acute fracture. Soft tissues: Unremarkable. IMPRESSION: No CT evidence for acute intracranial abnormality or significant change since 05/30/2021. While there is no CT evidence for acute infarct, MRI would be more sensitive in this regard if clinically indicated. COMMENTS: Early cerebral infarct may be CT occult in the first 12 hours. Electronically signed by: Jimi Adam On 07/23/2021 08:33:05 AM
[2021-07-23] MEDS: PARoxetine 10MG TABLET PO SCH (08:44)
[2021-07-23] MEDS: QUEtiapine FUMARATE 50MG TAB PO SCH (08:45)
[2021-07-23] MEDS: SINEMET 25-100 MG TAB PO SCH ×3 (08:45→20:19)
[2021-07-23] MEDS: allopurinoL 300 MG TAB PO SCH (08:45)
[2021-07-23] MEDS: MULTIVITAMINS/MINERALS THERAP 1 TAB PO SCH (08:45)
[2021-07-23] MEDS: FOLIC ACID 1 MG TAB PO SCH (08:45)
[2021-07-23] MEDS: FUROSEMIDE 40 MG TAB PO SCH (08:45)
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
[2021-07-23] MEDS: MIRALAX *UNIT DOSE* 17GM PACKET PO PRN (15:29)
[2021-07-23 16:10] VITALS: BP 120/71
[2021-07-23] MEDS: QUEtiapine FUMERATE XR 50 MG TABER PO SCH (20:19)
[2021-07-23] MEDS: traZODone 50 MG TAB PO PRN (21:46)
[2021-07-24 06:14] VITALS: BP 110/64
[2021-07-24] MEDS: SINEMET 25-100 MG TAB PO SCH ×3 (08:57→20:18)
[2021-07-24] MEDS: MULTIVITAMINS/MINERALS THERAP 1 TAB PO SCH (08:57)
[2021-07-24] MEDS: allopurinoL 300 MG TAB PO SCH (08:57)
[2021-07-24] MEDS: FOLIC ACID 1 MG TAB PO SCH (08:57)
[2021-07-24] MEDS: QUEtiapine FUMARATE 50MG TAB PO SCH (08:57)
[2021-07-24] MEDS: FUROSEMIDE 40 MG TAB PO SCH (08:57)
[2021-07-24] MEDS: PARoxetine 10MG TABLET PO SCH (08:58)
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
[2021-07-24] MEDS: MIRALAX *UNIT DOSE* 17GM PACKET PO PRN (15:25)
[2021-07-24 16:40] VITALS: BP 107/74
[2021-07-24] MEDS: QUEtiapine FUMERATE XR 50 MG TABER PO SCH (20:18)
[2021-07-24] MEDS: MIRTAZAPINE 15 MG TAB PO SCH (20:18)
[2021-07-24] MEDS: traZODone 50 MG TAB PO PRN (20:18)
[2021-07-25 06:17] VITALS: BP 122/73
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
[2021-07-25] MEDS: QUEtiapine FUMARATE 50MG TAB PO SCH (09:52)
[2021-07-25] MEDS: SINEMET 25-100 MG TAB PO SCH ×3 (09:52→20:09)
[2021-07-25] MEDS: allopurinoL 300 MG TAB PO SCH (09:52)
[2021-07-25] MEDS: FOLIC ACID 1 MG TAB PO SCH (09:52)
[2021-07-25] MEDS: MULTIVITAMINS/MINERALS THERAP 1 TAB PO SCH (09:52)
[2021-07-25] MEDS: FUROSEMIDE 40 MG TAB PO SCH (09:53)
[2021-07-25] MEDS: PARoxetine 10MG TABLET PO SCH (09:53)
[2021-07-25] MEDS: MIRALAX *UNIT DOSE* 17GM PACKET PO PRN (15:18)
[2021-07-25 17:13] VITALS: BP 137/81
[2021-07-25] MEDS: QUEtiapine FUMERATE XR 50 MG TABER PO SCH (20:09)
[2021-07-26 07:04] VITALS: BP 145/87
[2021-07-26] MEDS: FOLIC ACID 1 MG TAB PO SCH (09:50)
[2021-07-26] MEDS: PARoxetine 10MG TABLET PO SCH (09:50)
[2021-07-26] MEDS: SINEMET 25-100 MG TAB PO SCH ×3 (09:50→21:03)
[2021-07-26] MEDS: MULTIVITAMINS/MINERALS THERAP 1 TAB PO SCH (09:51)
[2021-07-26] MEDS: FUROSEMIDE 40 MG TAB PO SCH (09:51)
[2021-07-26] MEDS: QUEtiapine FUMARATE 50MG TAB PO SCH (09:52)
[2021-07-26] MEDS: allopurinoL 300 MG TAB PO SCH (09:54)
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
[2021-07-26 18:00] VITALS: BP 125/81
[2021-07-26] MEDS: QUEtiapine FUMERATE XR 50 MG TABER PO SCH (21:03)
[2021-07-26] MEDS: traZODone 50 MG TAB PO PRN (21:03)
[2021-07-26] MEDS: MIRTAZAPINE 15 MG TAB PO SCH (21:03)
[2021-07-27 06:49] VITALS: BP 134/65
[2021-07-27] MEDS: FOLIC ACID 1 MG TAB PO SCH (09:36)
[2021-07-27] MEDS: SINEMET 25-100 MG TAB PO SCH ×3 (09:36→20:40)
[2021-07-27] MEDS: allopurinoL 300 MG TAB PO SCH (09:36)
[2021-07-27] MEDS: FUROSEMIDE 40 MG TAB PO SCH (09:36)
[2021-07-27] MEDS: MULTIVITAMINS/MINERALS THERAP 1 TAB PO SCH (09:36)
[2021-07-27] MEDS: QUEtiapine FUMARATE 50MG TAB PO SCH (09:36)
[2021-07-27] MEDS: PARoxetine 10MG TABLET PO SCH (09:37)
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
[2021-07-27] MEDS: QUEtiapine FUMERATE XR 50 MG TABER PO SCH (20:40)
[2021-07-28 06:10] VITALS: BP 142/84
[2021-07-28] MEDS: SINEMET 25-100 MG TAB PO SCH ×3 (09:20→20:35)
[2021-07-28] MEDS: MULTIVITAMINS/MINERALS THERAP 1 TAB PO SCH (09:20)
[2021-07-28] MEDS: FOLIC ACID 1 MG TAB PO SCH (09:20)
[2021-07-28] MEDS: QUEtiapine FUMARATE 50MG TAB PO SCH (09:20)
[2021-07-28] MEDS: allopurinoL 300 MG TAB PO SCH (09:20)
[2021-07-28] MEDS: FUROSEMIDE 40 MG TAB PO SCH (09:21)
[2021-07-28] MEDS: PARoxetine 10MG TABLET PO SCH (09:23)
[2021-07-28] MEDS: PIMAVANSERIN 34 MG PO SCH (09:23)
[2021-07-28] MEDS: MIRALAX *UNIT DOSE* 17GM PACKET PO PRN (12:09)
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
[2021-07-28 17:44] VITALS: BP 141/83
[2021-07-28] MEDS: MIRTAZAPINE 15 MG TAB PO SCH (20:35)
[2021-07-28] MEDS: QUEtiapine FUMERATE XR 50 MG TABER PO SCH (20:35)
[2021-07-29 06:42] VITALS: BP 156/86
[2021-07-29] MEDS: PIMAVANSERIN 34 MG PO SCH (09:45)
[2021-07-29] MEDS: allopurinoL 300 MG TAB PO SCH (09:47)
[2021-07-29] MEDS: SINEMET 25-100 MG TAB PO SCH ×3 (09:47→20:09)
[2021-07-29] MEDS: PARoxetine 10MG TABLET PO SCH (09:48)
[2021-07-29] MEDS: FOLIC ACID 1 MG TAB PO SCH (09:49)
[2021-07-29] MEDS: FUROSEMIDE 40 MG TAB PO SCH (09:49)
[2021-07-29] MEDS: MULTIVITAMINS/MINERALS THERAP 1 TAB PO SCH (09:49)
[2021-07-29] MEDS: QUEtiapine FUMARATE 50MG TAB PO SCH (09:50)
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
[2021-07-29] MEDS: MIRALAX *UNIT DOSE* 17GM PACKET PO PRN (15:54)
[2021-07-29 18:40] VITALS: BP 140/85
[2021-07-29] MEDS: QUEtiapine FUMERATE XR 50 MG TABER PO SCH (20:09)
[2021-07-30 06:36] VITALS: BP 118/74
[2021-07-30] MEDS: PIMAVANSERIN 34 MG PO SCH (08:06)
[2021-07-30] MEDS: PARoxetine 10MG TABLET PO SCH (08:10)
[2021-07-30] MEDS: FUROSEMIDE 40 MG TAB PO SCH (08:10)
[2021-07-30] MEDS: allopurinoL 300 MG TAB PO SCH (08:10)
[2021-07-30] MEDS: SINEMET 25-100 MG TAB PO SCH ×3 (08:10→21:03)
[2021-07-30] MEDS: MULTIVITAMINS/MINERALS THERAP 1 TAB PO SCH (08:10)
[2021-07-30] MEDS: FOLIC ACID 1 MG TAB PO SCH (08:10)
[2021-07-30] MEDS: QUEtiapine FUMARATE 50MG TAB PO SCH (08:11)
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
[2021-07-30] MEDS: MIRALAX *UNIT DOSE* 17GM PACKET PO PRN (16:08)
[2021-07-30 18:30] VITALS: BP 148/83
[2021-07-30] MEDS: MIRTAZAPINE 15 MG TAB PO SCH (21:03)
[2021-07-30] MEDS: QUEtiapine FUMERATE XR 50 MG TABER PO SCH (21:04)
[2021-07-31 06:39] VITALS: BP 157/82
[2021-07-31] MEDS: FOLIC ACID 1 MG TAB PO SCH (08:37)
[2021-07-31] MEDS: allopurinoL 300 MG TAB PO SCH (08:38)
[2021-07-31] MEDS: PIMAVANSERIN 34 MG PO SCH (08:38)
[2021-07-31] MEDS: MULTIVITAMINS/MINERALS THERAP 1 TAB PO SCH (08:38)
[2021-07-31] MEDS: PARoxetine 10MG TABLET PO SCH (08:39)
[2021-07-31] MEDS: FUROSEMIDE 40 MG TAB PO SCH (08:39)
[2021-07-31] MEDS: SINEMET 25-100 MG TAB PO SCH ×3 (08:40→20:03)
[2021-07-31] MEDS ORDERED: QUEtiapine FUMARATE 100 MG TAB PO SCH (09:00)
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
[2021-07-31] MEDS: MIRALAX *UNIT DOSE* 17GM PACKET PO PRN (17:54)
[2021-07-31 18:01] VITALS: BP 130/82
[2021-07-31] MEDS: QUEtiapine FUMARATE **XR** 200MG TABLET PO SCH (20:03)
[2021-08-01 06:12] VITALS: BP 152/78
[2021-08-01] MEDS: allopurinoL 300 MG TAB PO SCH (08:22)
[2021-08-01] MEDS: PARoxetine 10MG TABLET PO SCH (08:22)
[2021-08-01] MEDS: MULTIVITAMINS/MINERALS THERAP 1 TAB PO SCH (08:22)
[2021-08-01] MEDS: FOLIC ACID 1 MG TAB PO SCH (08:22)
[2021-08-01] MEDS: SINEMET 25-100 MG TAB PO SCH ×3 (08:22→20:50)
[2021-08-01] MEDS: QUEtiapine FUMARATE **XR** 200MG TABLET PO SCH ×2 (08:22→20:50)
[2021-08-01] MEDS: PIMAVANSERIN 34 MG PO SCH (08:22)
[2021-08-01] MEDS: FUROSEMIDE 40 MG TAB PO SCH (08:23)
[2021-08-01] MEDS ORDERED: haloperidoL 5 MG TAB PO PRN (11:45)
[2021-08-01] MEDS ORDERED: BENZTROPINE 1 MG TAB PO PRN (11:50)
[2021-08-01] MEDS: MIRALAX *UNIT DOSE* 17GM PACKET PO PRN (15:17)
[2021-08-01 16:26] VITALS: BP 114/72
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
[2021-08-01] MEDS: MIRTAZAPINE 15 MG TAB PO SCH (20:50)
[2021-08-01] MEDS ORDERED: haloperidoL 5 MG TAB PO SCH (21:00)
[2021-08-02 06:24] VITALS: BP 146/73
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
[2021-08-02] MEDS: QUEtiapine FUMARATE **XR** 200MG TABLET PO SCH ×2 (08:38→20:02)
[2021-08-02] MEDS: PARoxetine 10MG TABLET PO SCH (08:38)
[2021-08-02] MEDS: MULTIVITAMINS/MINERALS THERAP 1 TAB PO SCH (08:38)
[2021-08-02] MEDS: FUROSEMIDE 40 MG TAB PO SCH (08:39)
[2021-08-02] MEDS: PALIPERIDONE 6 MG ER TAB (INVEGA) PO SCH (08:39)
[2021-08-02] MEDS: SINEMET 25-100 MG TAB PO SCH ×3 (08:39→20:05)
[2021-08-02] MEDS: FOLIC ACID 1 MG TAB PO SCH (08:39)
[2021-08-02] MEDS: allopurinoL 300 MG TAB PO SCH (08:39)
[2021-08-02] MEDS: PIMAVANSERIN 34 MG PO SCH (08:40)
[2021-08-02] MEDS: MIRALAX *UNIT DOSE* 17GM PACKET PO PRN (15:11)
[2021-08-02 16:27] VITALS: BP 116/61
[2021-08-02] MEDS: traZODone 50 MG TAB PO PRN (20:03)
[2021-08-02] MEDS: MIRTAZAPINE 15 MG TAB PO SCH (20:04)
[2021-08-03] MEDS: QUEtiapine FUMARATE **XR** 200MG TABLET PO SCH ×2 (08:27→20:20)
[2021-08-03] MEDS: SINEMET 25-100 MG TAB PO SCH ×3 (08:27→20:20)
[2021-08-03] MEDS: PARoxetine 10MG TABLET PO SCH (08:27)
[2021-08-03] MEDS: allopurinoL 300 MG TAB PO SCH (08:27)
[2021-08-03] MEDS: FUROSEMIDE 40 MG TAB PO SCH (08:27)
[2021-08-03] MEDS: PIMAVANSERIN 34 MG PO SCH (08:27)
[2021-08-03] MEDS: FOLIC ACID 1 MG TAB PO SCH (08:27)
[2021-08-03] MEDS: MULTIVITAMINS/MINERALS THERAP 1 TAB PO SCH (08:27)
[2021-08-03] MEDS: PALIPERIDONE 6 MG ER TAB (INVEGA) PO SCH (08:27)
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
[2021-08-03] MEDS: MIRALAX *UNIT DOSE* 17GM PACKET PO PRN (15:08)
[2021-08-03 16:24] VITALS: BP 135/81
[2021-08-03] MEDS: MIRTAZAPINE 15 MG TAB PO SCH (20:20)
[2021-08-04 07:09] VITALS: BP 138/80
[2021-08-04 07:22] LABS: CHOLESTEROL RISK RATIO 4.969 (<5)
[2021-08-04] MEDS: QUEtiapine FUMARATE **XR** 200MG TABLET PO SCH ×2 (08:37→20:16)
[2021-08-04] MEDS: PALIPERIDONE 6 MG ER TAB (INVEGA) PO SCH (08:37)
[2021-08-04] MEDS: PARoxetine 10MG TABLET PO SCH (08:37)
[2021-08-04] MEDS: FUROSEMIDE 40 MG TAB PO SCH (08:38)
[2021-08-04] MEDS: MULTIVITAMINS/MINERALS THERAP 1 TAB PO SCH (08:38)
[2021-08-04] MEDS: FOLIC ACID 1 MG TAB PO SCH (08:38)
[2021-08-04] MEDS: SINEMET 25-100 MG TAB PO SCH ×3 (08:38→20:16)
[2021-08-04] MEDS: allopurinoL 300 MG TAB PO SCH (08:38)
[2021-08-04] MEDS: PIMAVANSERIN 34 MG PO SCH (08:39)
[2021-08-04] MEDS: MIRALAX *UNIT DOSE* 17GM PACKET PO PRN (15:16)
--- NOTE | 2021-08-04 16:19 | MHIPNPDOC ---
[facility] Progress Note Progress Note DATE OF SERVICE: 08/04/21 HISTORY: Patient is a 66 -year-old , male, with a past psychiatric history of depression with psychotic features, neurocognitive disorder, having work-up for possible Lewy body dementia who who presents after pulling out a switchblade in his home in the middle of the night while he was naked with his present per PSA report. She called the police and he was brought in to the ED in context of his hallucinations, delusions of having others in the house. Interval: Today continues to be doing better, is alert and oriented. Denies medication side effects, seen in social media. No acute overnight events. Has an understanding of the situation, stating "I do know I have Parkinson's but no need to be here". Dates he wants to be home for his 's birthday on Sunday, and is somewhat frustrated he has to continue to stay on the unit despite his significant improvement. VITAL SIGNS: See below. NEW TEST RESULTS: None CURRENT MEDICATIONS: See below. MENTAL STATUS EXAMINATION: Patient is a 66-year old male, who is in no acute distress, standing next to bed, in casual clothing, good eye contact, appears stated age, good hygiene. Speech: Is linear and logical during interview. Language skills are intact. Thought processes including: Linear,logical Thought content: Denies hallucinations, delusions, suicidal ideations or intent or plan, homicidal ideations or intent or plan. Abstract reasoning, and computation: Fair. Description of associations: Intact. Description of abnormal or psychotic thoughts: Denies hallucinations or delusions. Judgment: Improving. Insight: Improving Orientation: X3 Recent and remote memory: Poor. Attention span and concentration: Fair. Language: Romanian. Fund of knowledge: Average. Mood: "alright" Affect: Euthymic, mood congruent, appropriate DIAGNOSES: 1. Major neurocognitive disorder, rule out Lewy body dementia vs parkinson's disease 2. 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 Per discussion with nursing staff check of records patient does not appear to have waxing and waning of cognition or periodic changes in behavior, no aggression. Despite this Per [employer] [facility] by social work with Pretty, she continues to be concerned about the patient and afraid of him, unwilling to have him home at this time. MANAGEMENT PLAN: Patient pending disposition, possibly transfer to analyze versus returning home if symptoms continue to improve and is agreeable. Plan to possibly speak with tomorrow. TIME SPENT: 20 minutes. Vital Signs Vital Signs Date Time Temp Pulse Resp B/P (MAP) Pulse Ox O2 Delivery O2 Flow Rate FiO2 08/04/21 08:07 Room Air 08/04/21 07:09 98.9 90 18 138/80 (99) 98 Laboratory Data 24H Labs Laboratory Tests 2 08/04/21 06:42: Triglycerides Level 184H, Total Cholesterol 164, LDL Cholesterol 94, Non-HDL Cholesterol (LDL + VLDL) 131, Total HDL Cholesterol 33L, Cholesterol/HDL Ratio 4.969 Current Medications Current Medications Medications (Trade) Dose Ordered Sig/Karina Route PRN Reason Start Time Stop Time Status Last Admin Dose Admin Acetaminophen (Tylenol Tab) 650 mg Q6HP PRN PO HEADACHE or MILD DISCOMFORT 07/21/21 12:35 Al Hydrox/Mg Hydrox/Simethicone (Mylanta) 30 ml Q4HP PRN PO HEARTBURN/INDIGESTION 07/21/21 12:35 Allopurinol (Zyloprim) 300 mg DAILY PO 07/21/21 09:00 08/04/21 08:38 Benztropine Mesylate (Cogentin) 1 mg BIDP PRN PO RESTLESSNESS 08/01/21 11:50 Cancel Carbidopa/Levodopa (Sinemet 25/100) 1 tab QID PO 07/21/21 13:00 07/22/21 13:56 DC 07/22/21 13:32 Carbidopa/Levodopa (Sinemet 25/100) 1 tab TID PO 07/22/21 21:00 08/04/21 15:13 Diazepam (Valium) 2 mg TID PRN PO SEVERE ANXIETY 07/21/21 12:35 07/22/21 01:27 DC Diazepam (Valium) 2 mg TID PRN PO SEVERE ANXIETY 07/22/21 01:30 07/22/21 08:39 DC 07/22/21 01:38 Folic Acid (Folic Acid) 1 mg DAILY PO 07/21/21 09:00 08/04/21 08:38 Furosemide (Lasix) 40 mg DAILY PO 07/21/21 09:00 08/04/21 08:38 Haloperidol (Haldol) 5 mg Q6HP PRN PO AGITATION 08/01/21 11:45 Cancel Haloperidol (Haldol) 5 mg Q6HP PRN PO ANXIETY/AGITATION 07/21/21 21:40 07/22/21 07:54 DC 07/21/21 22:15 Haloperidol (Haldol) 5 mg QHS PO 08/01/21 21:00 08/01/21 15:08 DC Home Med (Home Med List Complete!) ASDIRECTED XX 07/21/21 11:20 07/21/21 11:24 DC Lorazepam (Ativan) 2 mg ASDIRECTED PRN PO SEE PROTOCOL 07/21/21 12:35 07/22/21 08:39 DC 07/22/21 07:13 Magnesium Hydroxide (Milk Of Magnesia) 30 ml DAILYPRN PRN PO CONSTIPATION 07/21/21 12:35 Mirtazapine (Remeron) 15 mg Q2D@2100 PO 07/22/21 21:00 08/03/21 20:20 Multivitamins (Theragram-M) 1 tab DAILY PO 07/21/21 09:00 08/04/21 08:38 Paliperidone (Invega) 6 mg DAILY PO 08/02/21 09:00 08/04/21 08:37 Paroxetine HCl (PAXil) 30 mg DAILY PO 07/21/21 09:00 08/04/21 08:37 Patient Own Medication (Patient'S Own Med) 1 CAP = 34MG DAILY PO 07/28/21 09:00 08/04/21 08:39 Polyethylene Glycol (Miralax) 1 pkt DAILYPRN PRN PO CONSTIPATION 07/22/21 15:45 08/04/21 15:16 Quetiapine Fumarate (SEROquel XR) 200 mg BID PO 07/31/21 21:00 08/04/21 08:37 Quetiapine Fumarate (SEROquel XR) 200 mg QHS PO 07/22/21 21:00 07/22/21 08:41 DC Quetiapine Fumarate (SEROquel) 50 mg DAILY PO 07/22/21 08:05 07/30/21 12:20 DC 07/30/21 08:11 Quetiapine Fumarate (SEROquel) 50 mg QIDP PRN PO ANXIETY/AGITATION 07/22/21 08:20 Cancel Quetiapine Fumarate (SEROquel) 100 mg DAILY PO 07/31/21 09:00 07/31/21 09:07 DC 07/31/21 08:38 Quetiapine Fumarate (Seroquel Xr) 50 mg QHS PO 07/22/21 21:00 07/29/21 11:17 DC 07/28/21 20:35 Quetiapine Fumarate (Seroquel Xr) 100 mg QHS PO 07/29/21 21:00 07/31/21 09:07 DC 07/30/21 21:04 Quetiapine Fumarate (Seroquel Xr) 100 mg QHS PO 07/22/21 21:00 07/22/21 13:41 DC Thiamine HCl (Thiamine HCl) 100 mg BID PO 07/21/21 09:00 07/22/21 16:04 DC 07/22/21 08:47 Trazodone HCl (Desyrel) 50 mg QHSP PRN PO INSOMNIA 07/21/21 12:35 08/02/21 20:03 Allergies Coded Allergies: Penicillins (Verified Allergy, Intermediate, RASH, 08/26/20) ANTONINO EWING MD Aug 04, 2021 16:19
[2021-08-04 18:06] VITALS: BP 122/70
[2021-08-04] MEDS: traZODone 50 MG TAB PO PRN (20:16)
[2021-08-04] MEDS: OMEGA-3 1000MG CAPSULE PO SCH (20:16)
[2021-08-05 06:40] VITALS: BP 138/80
[2021-08-05] MEDS: OMEGA-3 1000MG CAPSULE PO SCH ×2 (08:29→20:47)
[2021-08-05] MEDS: FUROSEMIDE 40 MG TAB PO SCH (08:29)
[2021-08-05] MEDS: MULTIVITAMINS/MINERALS THERAP 1 TAB PO SCH (08:30)
[2021-08-05] MEDS: SINEMET 25-100 MG TAB PO SCH ×3 (08:30→20:47)
[2021-08-05] MEDS: FOLIC ACID 1 MG TAB PO SCH (08:30)
[2021-08-05] MEDS: PALIPERIDONE 6 MG ER TAB (INVEGA) PO SCH (08:30)
[2021-08-05] MEDS: QUEtiapine FUMARATE **XR** 200MG TABLET PO SCH ×2 (08:30→20:46)
[2021-08-05] MEDS: allopurinoL 300 MG TAB PO SCH (08:30)
[2021-08-05] MEDS: PARoxetine 10MG TABLET PO SCH (08:31)
[2021-08-05] MEDS: PIMAVANSERIN 34 MG PO SCH (08:32)
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
[2021-08-05] MEDS: MIRALAX *UNIT DOSE* 17GM PACKET PO PRN (15:07)
[2021-08-05 16:48] VITALS: BP 142/70
[2021-08-05] MEDS: MIRTAZAPINE 15 MG TAB PO SCH (20:47)
[2021-08-05] MEDS: traZODone 50 MG TAB PO PRN (20:47)
[2021-08-06 06:18] VITALS: BP 121/71
[2021-08-06] MEDS: QUEtiapine FUMARATE **XR** 200MG TABLET PO SCH ×2 (08:16→20:49)
[2021-08-06] MEDS: FOLIC ACID 1 MG TAB PO SCH (08:16)
[2021-08-06] MEDS: PIMAVANSERIN 34 MG PO SCH (08:16)
[2021-08-06] MEDS: OMEGA-3 1000MG CAPSULE PO SCH ×2 (08:16→20:50)
[2021-08-06] MEDS: MULTIVITAMINS/MINERALS THERAP 1 TAB PO SCH (08:16)
[2021-08-06] MEDS: PARoxetine 10MG TABLET PO SCH (08:17)
[2021-08-06] MEDS: FUROSEMIDE 40 MG TAB PO SCH (08:17)
[2021-08-06] MEDS: SINEMET 25-100 MG TAB PO SCH ×3 (08:17→20:49)
[2021-08-06] MEDS: allopurinoL 300 MG TAB PO SCH (08:17)
[2021-08-06] MEDS: PALIPERIDONE 6 MG ER TAB (INVEGA) PO SCH (08:17)
[2021-08-06 16:16] VITALS: BP 122/69
[2021-08-07 06:58] VITALS: BP 122/81
[2021-08-07] MEDS: QUEtiapine FUMARATE **XR** 200MG TABLET PO SCH ×2 (08:04→20:31)
[2021-08-07] MEDS: PALIPERIDONE 6 MG ER TAB (INVEGA) PO SCH (08:04)
[2021-08-07] MEDS: allopurinoL 300 MG TAB PO SCH (08:04)
[2021-08-07] MEDS: MULTIVITAMINS/MINERALS THERAP 1 TAB PO SCH (08:04)
[2021-08-07] MEDS: FOLIC ACID 1 MG TAB PO SCH (08:04)
[2021-08-07] MEDS: PARoxetine 10MG TABLET PO SCH (08:05)
[2021-08-07] MEDS: PIMAVANSERIN 34 MG PO SCH (08:05)
[2021-08-07] MEDS: OMEGA-3 1000MG CAPSULE PO SCH ×2 (08:05→20:31)
[2021-08-07] MEDS: FUROSEMIDE 40 MG TAB PO SCH (08:05)
[2021-08-07] MEDS: SINEMET 25-100 MG TAB PO SCH ×3 (08:05→20:31)
[2021-08-07] MEDS: MIRALAX *UNIT DOSE* 17GM PACKET PO PRN (15:12)
[2021-08-07 16:28] VITALS: BP 135/77
[2021-08-07] MEDS: MIRTAZAPINE 15 MG TAB PO SCH (20:31)
[2021-08-08 07:08] VITALS: BP 144/80
[2021-08-08] MEDS: PIMAVANSERIN 34 MG PO SCH (08:27)
[2021-08-08] MEDS: PALIPERIDONE 6 MG ER TAB (INVEGA) PO SCH (08:30)
[2021-08-08] MEDS: FUROSEMIDE 40 MG TAB PO SCH (08:30)
[2021-08-08] MEDS: OMEGA-3 1000MG CAPSULE PO SCH (08:30)
[2021-08-08] MEDS: allopurinoL 300 MG TAB PO SCH (08:30)
[2021-08-08] MEDS: MULTIVITAMINS/MINERALS THERAP 1 TAB PO SCH (08:30)
[2021-08-08] MEDS: PARoxetine 10MG TABLET PO SCH (08:30)
[2021-08-08] MEDS: FOLIC ACID 1 MG TAB PO SCH (08:30)
[2021-08-08] MEDS: QUEtiapine FUMARATE **XR** 200MG TABLET PO SCH (08:30)
[2021-08-08] MEDS: SINEMET 25-100 MG TAB PO SCH (08:30)
[2021-08-08] MEDS ORDERED: TRAZ-252 PO (11:36)
[2021-08-08] MEDS ORDERED: FISH1CAP26 PO (11:36)
[2021-08-08] MEDS ORDERED: PALI1TAB3 PO (11:36)
[2021-08-08] MEDS ORDERED: PARO5TAB PO (11:36)
[2021-08-08] MEDS ORDERED: Patient Own Medication PO (11:36)
[2021-08-08] MEDS ORDERED: CARB25TA9 PO (11:36)
[2021-08-08] MEDS ORDERED: QUET200T54 PO (11:36)
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
== END 2021-08-08 11:52 | disposition home or self-care (01) | DRG 885 ==
LOC: M ED 05:25 → M ED INP 12:33 → M PSY 15:02
PROVIDERS: ADMIT Student in an Organized Health Care Education/Training Program; ATTEND Student in an Organized Health Care Education/Training Program
DX: F32.3 Major depressive disorder, single episode, severe with psychotic features (principal); F02.81 Dementia in other diseases classified elsewhere, unspecified severity, with behavioral disturbance; G20 Parkinson's disease; N18.30 Chronic kidney disease, stage 3 unspecified; R41.9 Unspecified symptoms and signs involving cognitive functions and awareness; Z20.822 Contact with and (suspected) exposure to COVID-19; Z79.899 Other long term (current) drug therapy; Z88.0 Allergy status to penicillin; I12.9 Hypertensive chronic kidney disease with stage 1 through stage 4 chronic kidney disease, or unspecified chronic kidney disease; E79.0 Hyperuricemia without signs of inflammatory arthritis and tophaceous disease